=== PATIENT | male | born 1960 | race Caucasian/White ===

== ENCOUNTER 2018-09-25 12:45 | Observation (INO) | payer OTHER, SELFPAY ==
[2018-09-25 12:46] VITALS: BP 153/98; PULSE 60; RESP 13; TEMP 36.9; O2SAT 99
--- NOTE | 2018-09-25 13:05 | ED.NEUROSD ---
HPI - Neuro Symptoms/Deficit General Chief Complaint: Neuro Symptoms/Deficit Stated Complaint: sudden memory issues Time Seen by Provider: 09/25/18 12:53 Source: patient and family Mode of arrival: ambulatory Limitations: no limitations History of Present Illness HPI Narrative: Patient is a 58-year-old male brought in by his by private vehicle. A code stroke was called in triage secondary to his complaint of word-finding issues. To shortly prior to arrival here in the emergency department the patient was sitting at lunch with his when they reported a sudden onset of the patient having confusion and problems finding words. Patient's states that he could remember people's names. He had trouble telling her what he did during work that day. She had him see the alphabet and he had difficulty doing that. The patient states that he understood that he was having problems thing words. He stated that he could see the words that he wanted to say and his head but could not say them. He states state that he has a slight headache however no other associated symptoms. Has never had any symptoms like this before. Upon my evaluation the patient is thinks that his symptoms have improved somewhat but not completely resolved. Related Data Home Medications Medication Instructions Recorded Confirmed amlodipine [Norvasc] 5 mg PO QPM 09/25/18 09/25/18 aspirin 81 mg PO QPM 09/25/18 09/25/18 benazepril 10 mg PO BID 09/25/18 09/25/18 cetirizine 10 mg PO QPM PRN 09/25/18 09/25/18 escitalopram oxalate 10 mg PO QPM 09/25/18 09/25/18 ranitidine HCl [Zantac] 150 mg PO BEDTIME 09/25/18 09/25/18 sildenafil (antihypertensive) 1 dose PO PRN PRN 09/25/18 09/25/18 simvastatin 20 mg PO QPM 09/25/18 09/25/18 Allergies Allergy/AdvReac Type Severity Reaction Status Date / Time No Known Drug Allergies Allergy Verified 09/25/18 13:16 Review of Systems Constitutional Denies fatigue, Denies fever(s) and Reports headache(s) Eyes Denies change in vision and Denies diplopia ENT Ears, Nose, Mouth, and Throat: Reports headache(s), Denies neck pain, Denies disequilibrium and Denies sore throat Cardiovascular Denies chest pain, Denies rapid heart rate, Denies edema, Denies palpitations and Denies dyspnea Respiratory Denies cough and Denies dyspnea Gastrointestinal Gastrointestinal: Denies abdominal pain, Denies change in stool character, Denies nausea and Denies vomiting Genitourinary Denies dysuria Musculoskeletal Denies myalgias, Denies arthralgias, Denies neck pain, Denies numbness and Denies tingling Integumentary/Breasts Denies new lesions and Denies rash Neurologic Reports abnormal speech, Denies behavioral changes, Reports headache(s), Denies numbness, Denies tingling and Denies disequilibrium Psychiatric Denies behavioral changes Endocrine Denies fatigue and Denies palpitations Hematologic/Lymphatic Denies easy bleeding and Denies easy bruising Allergic/Immunologic Denies urticaria PFSH Medical History Hypertension (Acute) Social History household members: spouse and children Smoking Status: Never smoker Social History household members: spouse and children Smoking Status: Never smoker Exam Initial Vital Signs Initial Vital Signs: Vital Signs Temperature 98.4 F 09/25/18 12:46 Pulse Rate 60 09/25/18 12:46 Respiratory Rate 13 09/25/18 12:46 Blood Pressure 153/98 H 09/25/18 12:46 Pulse Oximetry 99 09/25/18 12:46 Const General: cooperative, comfortable, well developed, well groomed and No acute distress Orientation: alert, awake and oriented x3 HENOK Head: normal to inspection and normocephalic Eyes Pupils: PERRL EOM: EOM intact bilaterally Resp Effort & Inspection: normal respiratory effort Auscultation: clear to auscultation bilaterally Cardio Rate: regular rate Rhythm: regular rhythm Pulses: radial pulses present GI Inspection: non-distended Palpation: soft, No firm and No tender Skin Lesions: no lesions Rashes: no rashes Neuro General: alert, awake and oriented x3 Cranial Nerves: CN's II-XI intact bilaterally Cognition: normal cognition Speech: speech normal Gait: normal gait Motor: muscle tone normal throughout Sensory Exam: no sensory deficits noted Extrem General: capillary refill normal Psych Appearance: grossly normal and well kempt Scores GCS Ben coma scale eye opening: Spontaneous Cactus coma scale verbal response: Orientated Ben coma scale motor response: Obey commands Ben coma scale total score: 15 NIH Stroke Scale Level of Conciousness: Alert, keenly responsive Ask month/age: Answers both questions correctly. Open/close eyes, close hand: Performs both tasks correctly Best gaze horizontal: Normal Visual arevalo: No visual loss Facial palsy: Normal symetrical movement Left arm drift: No drift for full 10 sec Right arm drift: No drift for full 10 sec Left leg drift: No drift for full 10 sec Right leg drift: No drift for full 10 sec Limb ataxia: Absent Sensory on face/arms/legs: Normal, no sensory loss Best language: Mild to moderate, slurs some words Dysarthria: Normal Extinction or inattention: No abnormality Total NIH Stroke scale score: 1 Course Orders Ordered: ED Orders 09/25/18 13:00 Basic Metabolic Panel Stat Complete Blood Count AUTO DIFF Stat Partial Thromboplastin Time Stat Prothrombin Time INR Stat 09/25/18 13:10 EKG-12 Lead Stat 09/25/18 13:14 CT head/brain wo con Stat 09/25/18 13:40 Urine Drug Screen, Rapid Stat 09/25/18 14:06 Education, smoking cessation ONGOING 09/25/18 14:08 Consult to Discharge Planning Routine Consult to Occupational Therapy Evaluate & Treat 09/25/18 14:26 EC echo doppler complete Urgent MR stroke Urgent 09/25/18 16:48 Consult to Speech Therapy Evaluate & Treat 09/26/18 05:00 Hemoglobin A1C% w Est Avg Glu Routine Lipid Panel Routine Acetaminophen (Tylenol) 650 mg PO Q6HR PRN PRN Reason: As Needed for Fever/Mild Pain Last Admin: 09/25/18 14:22 Dose: 650 mg Al Hydrox/Mg Hydrox/Simethicone (Maalox Plus) 30 ml PO Q6HR PRN PRN Reason: Dyspepsia Aspirin (Aspirin Ec) 81 mg PO QPM ROGELIO Calcium Carbonate (Tums) 1,000 mg PO Q4HR PRN PRN Reason: Dyspepsia Escitalopram Oxalate (Lexapro) 10 mg PO QPM ROGELIO Heparin Sodium (Porcine) (Heparin) 5,000 unit SUBCUT BID ROGELIO Sodium Chloride (Normal Saline 0.9%) 1,000 mls @ 100 mls/hr IV CONT ROGELIO Magnesium Hydroxide (Milk Of Magnesia) 30 ml PO DAILY PRN PRN Reason: Constipation Non-Formulary Medication (Cetirizine) 10 mg PO QPM PRN PRN Reason: Allergy Symptoms Ondansetron HCl (Zofran) 4 mg IV Q8HR PRN PRN Reason: Nausea And Vomiting Ranitidine HCl (Zantac) 150 mg PO BEDTIME ROGELIO Simvastatin (Zocor) 20 mg PO QPM ROGELIO Discontinued Medications Aspirin (Aspirin Chew) 324 mg PO NOW ONE Stop: 09/25/18 14:07 Last Admin: 09/25/18 14:22 Dose: 324 mg Sodium Chloride (Normal Saline 0.9%) 1,000 mls @ 150 mls/hr IV CONT ROGELIO Last Infusion: 09/25/18 14:39 Dose: 150 mls/hr Admin: 09/25/18 13:23 Dose: 150 mls/hr Vital Signs - 8 hr 09/25/18 12:46 09/25/18 13:30 09/25/18 15:30 Temperature 98.4 F 98.2 F Pulse Rate 60 54 L 61 Respiratory Rate 13 20 Blood Pressure 153/98 H 148/83 H Blood Pressure [Right Arm] 154/91 H Pulse Oximetry 99 98 97 MDM - Neuro Symptoms/Deficit Lab Data Attestation: I reviewed the patient's lab results. Result diagrams: 09/25/18 13:00 09/25/18 13:00 Lab Results 09/25/18 09/25/18 09/25/18 Range/Units 13:00 13:00 13:00 WBC 7.2 (4.5-11.0) X10^3/uL RBC 4.60 (4.5-5.9) X10^6/uL Hgb 13.8 (13.5-17.5) g/dL Hct 41.5 (41-53) % MCV 90.1 (80-100) fL MCH 30.1 (26-34) PG MCHC 33.3 (30-36) % RDW 13.7 (11.6-14.8) % Plt Count 209 (150-400) X10^3/uL Neut % (Auto) 70.1 (50-75) % Lymph % (Auto) 20.3 L (25-40) % [place] % (Auto) 7.9 (3-14) % Eos % (Auto) 1.2 L (2-4) % Baso % (Auto) 0.5 (0-2) % Neut # (Auto) 5100 (8913-9012) /uL Lymph # (Auto) 1500 (4022-3147) /uL [place] # (Auto) 600 (0-900) /uL Eos # (Auto) 100 (0-450) /uL Baso # (Auto) 0 (0-100) /uL PT 10.6 (10.1-12.7) SECONDS INR 0.9 (0.9-1.3) APTT 30 (26.4-36.2) SECONDS Sodium 142 (137-145) mmol/L Potassium 3.7 (3.4-5.1) mmol/L Chloride 106 (98-107) mmol/L Carbon Dioxide 27 (22-32) mmol/L BUN 13 (9-20) mg/dL Creatinine 0.90 (0.66-1.25) mg/dL Estimated GFR > 60.0 (>60) mL/min BUN/Creatinine Ratio 14.4 (6-22) Glucose 123 H (70-100) mg/dL Calcium 9.5 (8.4-10.2) mg/dL Urine Opiates Screen (Negative) Ur Oxycodone Screen (Negative) Urine Methadone Screen (Negative) Ur Barbiturates Screen (Negative) U Tricyclic Antidepress (Negative) Ur Phencyclidine Scrn (Negative) Ur Amphetamines Screen (Negative) U Methamphetamines Scrn (Negative) Ur MDMA Scrn (Ecstasy) (Negative) U Benzodiazepines Scrn (Negative) Urine Cocaine Screen (Negative) U Marijuana (THC) Screen (Negative) 09/25/18 Range/Units 13:40 WBC (4.5-11.0) X10^3/uL RBC (4.5-5.9) X10^6/uL Hgb (13.5-17.5) g/dL Hct (41-53) % MCV (80-100) fL MCH (26-34) PG MCHC (30-36) % RDW (11.6-14.8) % Plt Count (150-400) X10^3/uL Neut % (Auto) (50-75) % Lymph % (Auto) (25-40) % [place] % (Auto) (3-14) % Eos % (Auto) (2-4) % Baso % (Auto) (0-2) % Neut # (Auto) (0783-3281) /uL Lymph # (Auto) (1867-7650) /uL [place] # (Auto) (0-900) /uL Eos # (Auto) (0-450) /uL Baso # (Auto) (0-100) /uL PT (10.1-12.7) SECONDS INR (0.9-1.3) APTT (26.4-36.2) SECONDS Sodium (137-145) mmol/L Potassium (3.4-5.1) mmol/L Chloride (98-107) mmol/L Carbon Dioxide (22-32) mmol/L BUN (9-20) mg/dL Creatinine (0.66-1.25) mg/dL Estimated GFR (>60) mL/min BUN/Creatinine Ratio (6-22) Glucose (70-100) mg/dL Calcium (8.4-10.2) mg/dL Urine Opiates Screen Negative (Negative) Ur Oxycodone Screen Negative (Negative) Urine Methadone Screen Negative (Negative) Ur Barbiturates Screen Negative (Negative) U Tricyclic Antidepress Negative (Negative) Ur Phencyclidine Scrn Negative (Negative) Ur Amphetamines Screen Negative (Negative) U Methamphetamines Scrn Negative (Negative) Ur MDMA Scrn (Ecstasy) Negative (Negative) U Benzodiazepines Scrn Negative (Negative) Urine Cocaine Screen Negative (Negative) U Marijuana (THC) Screen Negative (Negative) Point of Care Testing Glucose POC 133 Urine Dip Bedside Urine Glucose Negative Bedside Urine Bilirubin - Negative Bedside Urine Ketone - Negative Urine Specific [place] 1.015 Bedside Urine Occult Blood - Negative Bedside Urine pH 6.5 Bedside Urine Protein - Negative Bedside Urine Urobilinogen - Negative Bedside Urine Nitrite - Negative Bedside Urine Leukocytes - Negative Esterase Imaging Data CT scan - head: Radiologist's impression: [address] [address] [address] Scan Report Signed Patient: Itz Mcpherson [facility]#: [id number] : 1960Acct:[id number] Age/Sex: 58 / MDate of Service: 09/25/18 Loc: ED Accession Number: [id number] Procedure: CT head/brain wo con Ordering Provider: Dayanna Collins PROCEDURE: CT HEAD/BRAIN WO CON INDICATIONS: Neuro deficit, code stroke TECHNIQUE: Noncontrast 4.5 mm thick angled axial sections acquired from the foramen magnum to the vertex, with coronal and sagittal reformats. For radiation dose reduction, the following was used: automated exposure control, adjustment of mA and/or kV according to patient size. COMPARISON: None. FINDINGS: Image quality: Excellent. CSF spaces: Basal cisterns are patent. No extra-axial fluid collections. Ventricles are normal in size and shape. Brain: No midline shift. No intracranial masses or hemorrhage. Aguero-white matter interface is normal. Skull and face: Calvarium and visualized facial bones are intact, without suspicious lesions. Sinuses: There is a small air-fluid level in the left maxillary sinus. The mastoids are clear. IMPRESSION: 1. No acute intracranial abnormalities. 2. A small air-fluid level in the left maxillary sinus. The result was discussed with Dr. Elias in ER on 09/25/2018 at 1313 hours. Dictated by: Bryant Lopez M.D. on 09/25/2018 at 13:12 Approved by: Bryant Lopez M.D. on 09/25/2018 at 13:16 ECG Data Attestation: I personally reviewed and interpreted this ECG as follows: Prior ECG tracings: not available for review Interpretation: Sinus bradycardia Ventricular rate of 57 Normal axis Normal QRS Normal QTC No ST T wave changes MDM Narrative Medical decision making narrative: For the patient in the his symptoms have been improving since the onset. His head CT was negative. NIH of 2. My initial evaluation did have him have some problems saying his ABCs however re-evaluation after the head CT this had resolved. I do not feel that tPA is warranted given his improvement of symptoms and his low NIH score. During his time here in the ER the patient complete the resolved of all symptoms. He was given an aspirin. Discussed the case with with Internal Medicine will admit for TIA workup. Discussed the admission with the patient and his . They both expressed understanding and agreement. Discharge Plan Departure Patient Disposition: Admitted as Observation Clinical Impression: Transient cerebral ischemia Qualifiers: Transient cerebral ischemia type: unspecified Qualified Code(s): G45.9 - Transient cerebral ischemic attack, unspecified Discharge Date/Time: 09/25/18 15:19 Admit Date/Time: 09/25/18 14:16 Admit Provider: Milana Anne
[2018-09-25 13:07] LABS: Add Manual Diff / Slide Review NO; Basophils Absolute Auto 0 /uL (0-100); Basophils Percent Auto 0.5 % (0-2); Eosinophils Absolute Auto 100 /uL (0-450); Eosinophils Percent Auto 1.2 % (2-4); Hematocrit 41.5 % (41-53); Hemoglobin 13.8 g/dL (13.5-17.5); Lymphocytes Absolute Auto 1500 /uL (1100-4500); Lymphocytes Percent Auto 20.3 % (25-40); Mean Corpuscular HGB Conc 33.3 % (30-36); Mean Corpuscular Hemoglobin 30.1 PG (26-34); Mean Corpuscular Volume 90.1 fL (80-100); Monocytes Absolute Auto 600 /uL (0-900); Monocytes Percent Auto 7.9 % (3-14); Neutrophils Absolute Auto 5100 /uL (1500-7000); Neutrophils Percent Auto 70.1 % (50-75); Platelet Count 209 X10^3/uL (150-400); Red Cell Distribution Width 13.7 % (11.6-14.8); White Blood Cell Count 7.2 X10^3/uL (4.5-11.0)
--- NOTE | 2018-09-25 13:13 | PC.NURSE ---
code stroke on admission [id number]
--- NOTE | 2018-09-25 13:14 | DI.CT.S_ITS ---
PROCEDURE: CT HEAD/BRAIN WO CON INDICATIONS: Neuro deficit, code stroke TECHNIQUE: Noncontrast 4.5 mm thick angled axial sections acquired from the foramen magnum to the vertex, with coronal and sagittal reformats. For radiation dose reduction, the following was used: automated exposure control, adjustment of mA and/or kV according to patient size. COMPARISON: None. FINDINGS: Image quality: Excellent. CSF spaces: Basal cisterns are patent. No extra-axial fluid collections. Ventricles are normal in size and shape. Brain: No midline shift. No intracranial masses or hemorrhage. Aguero-white matter interface is normal. Skull and face: Calvarium and visualized facial bones are intact, without suspicious lesions. Sinuses: There is a small air-fluid level in the left maxillary sinus. The mastoids are clear. IMPRESSION: 1. No acute intracranial abnormalities. 2. A small air-fluid level in the left maxillary sinus. The result was discussed with Dr. Elias in ER on 09/25/2018 at 1313 hours. Dictated by: Bryant Lopez M.D. on 09/25/2018 at 13:12 Approved by: Bryant Lopez M.D. on 09/25/2018 at 13:16
[2018-09-25 13:15] LABS: INR 0.9 (0.9-1.3); Prothrombin Time 10.6 SECONDS (10.1-12.7)
[2018-09-25 13:18] LABS: PTT Partial Thromboplastin Tim 30 SECONDS (26.4-36.2)
[2018-09-25 13:19] LABS: BUN Creatinine Ratio 14.4 (6-22); Blood Urea Nitrogen 13 mg/dL (9-20); Calcium 9.5 mg/dL (8.4-10.2); Carbon Dioxide 27 mmol/L (22-32); Chloride 106 mmol/L (98-107); Estimated Glomerular Filt Rate > 60.0 mL/min (>60); Glucose 123 mg/dL (70-100); HEMOLYSIS < 15 (0-50); Potassium 3.7 mmol/L (3.4-5.1); Sodium 142 mmol/L (137-145)
[2018-09-25] MEDS: SODIUM CHLORIDE 0.9% 1,000 ML 150 ML IV (13:23)
--- NOTE | 2018-09-25 13:26 | PC.NURSE ---
pt states at 1100, he noticed his vision blurry, went to lunch at 1130 with spouse and she noticed him searching for words. finished lunch, dropped off work truck near by and came in.
[2018-09-25 13:30] VITALS: BP 154/91; PULSE 54; O2SAT 98
[2018-09-25 14:07] LABS: Urine Amphetamines Negative (Negative); Urine Barbiturates Negative (Negative); Urine Benzodiazepines Negative (Negative); Urine Cocaine Negative (Negative); Urine MDMA Negative (Negative); Urine Methadone Negative (Negative); Urine Methamphetamines Negative (Negative); Urine Morphine/Opi cutoff 2000 Negative (Negative); Urine Oxycodone Negative (Negative); Urine Phencyclidine Negative (Negative); Urine Tetrahydrocannabinol Negative (Negative); Urine Tricyclic Antidepressant Negative (Negative)
[2018-09-25] MEDS: ACETAMINOPHEN 325 MG TABLET 650 MG PO (14:22)
[2018-09-25] MEDS: ASPIRIN 81 MG TAB 324 MG PO (14:22)
--- NOTE | 2018-09-25 14:26 | DI.ECHO.S_ITS ---
[facility]---------+ [facility] +---------+ : : [address] : : : : [id number] : : : : Phone: [phone]+ Echocardiogram Report + + :Name: SERINA JACKSON Study Date: 09/25/2018 Height: 69 in : :[facility] Exam Location: [facility] Weight: 200 lb : : Gender: Male BSA: 2.1 m2 : :: 1960 Age: 58 yrs BP: 148/83 mmHg: :Reason For Study: TIA : : Performed By: Giovani Evans : :Referring: LAURA ORTIZ : + + Interpretation Summary The left ventricle is normal in size, wall thickness, and systolic function without any focal wall motion abnormalities with the ejection fraction visually estimated to be 60-65%. Diastolic parameters suggest probable normal left ventricular diastolic function and normal filling pressures. The right ventricle is borderline dilated with systolic function that is at the lower limits of normal. The right ventricular systolic pressure is estimated to be at least 24 mmHg based on an estimated right atrial pressure of 3 mm Hg. Both atria are normal in size. The interatrial septum appears intact with no visual or Doppler evidence for an atrial septal defect but injection of contrast with valsalva shows a small number of bubbles within 5 beats within the left atrium suggestive of a small patent foramen ovale. There is no significant valvular heart disease. The ascending aorta is mildly enlarged. Procedure: A two-dimensional transthoracic echocardiogram with color flow and Doppler was performed. The study quality was technically good. There is no prior echocardiogram noted for this patient. A saline contrast injection was performed to assess for cardiac shunting. The patient was in normal sinus rhythm during the exam. Left Ventricle: The left ventricle is normal in size, wall thickness, and systolic function without any focal wall motion abnormalities. The ejection fraction is estimated to be 60-65%. Diastolic parameters suggest probable normal left ventricular diastolic function and normal filling pressures. Right Ventricle: The right ventricle is borderline dilated. Right ventricular systolic function is at the lower limits of normal. Atria: Both atria are normal in size. The interatrial septum is intact with no evidence for an atrial septal defect. There is no Doppler evidence for an atrial septal defect. Injection of contrast with valsalva documented an interatrial shunt. Mitral Valve: The mitral valve is normal in structure and function. There is trace mitral regurgitation. Aortic Valve: The aortic valve is trileaflet. The aortic valve opens well. There is trace aortic regurgitation. Tricuspid Valve: The tricuspid valve is normal in structure and function. There is trace tricuspid regurgitation. The right ventricular systolic pressure is estimated to be at least 24 mmHg based on an estimated right atrial pressure of 3 mm Hg. Pulmonic Valve: The pulmonic valve is normal in structure and function. There is no pulmonic valvular regurgitation. There is no significant valvular heart disease. Great Vessels: The aortic root is normal size. The ascending aorta is mildly enlarged. The pulmonary artery is normal size. The IVC is of normal diameter and collapses greater than 50% with a sniff. This suggests a low right atrial pressure of 3 mm Hg. Pericardium/ Pleura There is no pericardial effusion. There is no pleural effusion. MMode/2D Measurements & Calculations LVIDd: 4.8 cm LVOT diam: 2.1 cm LVIDs: 3.4 cm Ao root diam: 3.2 cm FS: 29.8 % Aortic Jxn: 2.9 cm EPSS: 0.40 cm asc Aorta Diam: 3.8 cm IVSd: 1.0 cm LVPWd: 0.96 cm LV flores. diameter/BSA (cm/m^2): 2.3 LV sys. diameter/BSA (cm/m^2): 1.6 LA dimension: 3.2 cm RA long axis: 5.0 cm LA A2 area: 19.4 cm2 RA area: 16.0 cm2 LA A4 area: 17.6 cm2 RA vol: 43.5 ml LA length (vol): 5.0 cm RA : 21.0 ml/m2 LA vol: 57.9 ml IVC diam: 1.9 cm LA vol index: 28.0 ml/m2 RVD1 (basal): 4.2 cm RVD2 (mid): 4.3 cm Doppler Measurements & Calculations Ao V2 max: 152.0 cm/sec LVOT Max Rito: 96.1 cm/sec Ao V2 mean: 105.7 cm/sec LV V1 max P.7 mmHg Ao max P.2 mmHg LV V1 VTI: 23.3 cm Ao mean P.9 mmHg EULALIA(I,D): 2.6 cm2 Ao V2 VTI: 32.2 cm EULALIA(V,D): 2.2 cm2 sev ratio: 0.72 EULALIA indexed to BSA (cm^2/m^2): 1.2 MV E max rito: 103.6 cm/sec TR max rito: 227.5 cm/sec MV A max rito: 84.6 cm/sec TR max P.7 mmHg MV E/A: 1.2 PA V2 max: 84.5 cm/sec Med Peak E' Rito: 6.9 cm/sec PA V2 mean: 62.9 cm/sec E/E' med: 14.9 PA mean P.7 mmHg Lat Peak E' Rito: 11.4 cm/sec PA pr(Accel): 31.6 mmHg E/E' lat: 9.1 PA Accel Time: 0.11 sec E/e' average: 12.0 MV dec time: 0.17 sec SV(LVOT): 82.7 ml Reading Physician:PM
--- NOTE | 2018-09-25 14:26 | DI.MRI.S_ITS ---
PROCEDURE: MR STROKE Pre- and post-contrast brain MRI, non-contrast brain MR angiogram, pre- and postcontrast neck MR angiogram INDICATIONS: TIA with expressive aphasia TECHNIQUE: Brain: Noncontrast axial T1 spin echo, axial T2 fast spin echo, sagittal and axial FLAIR, coronal T2 fast spin echo, axial gradient echo, axial diffusion and ADC through the brain. After the administration of contrast, axial 3D VIBE of the cranial vasculature and brain. Brain MRA: Non-contrast 3-D time of flight MR angiogram, with multiple xtqxjzp-fubcsader-xtdaiopjnq (MIP) reformats performed. Neck MRA: Axial and sagittal TruFISP through the neck. Coronal dynamic MR angiogram during administration of contrast in the arterial and venous phases, with 3-dimenstional psquctg-royrjkkbs-sdxdjhlbly (MIP) reformats constructed from subtraction images. COMPARISON: [facility], CT, CT HEAD/BRAIN WO CON, 09/25/2018, 13:01. FINDINGS: Image quality: Excellent. BRAIN: CSF spaces: Ventricles are normal in size and shape. Basal cisterns are patent. No extra-axial fluid collections. Brain: No intracranial bleeds or mass effects. Aguero-white matter interface is normal. Diffusion weighted images show no acute ischemic insults. Brainstem appears normal. Normal intravascular flow voids are present. No abnormal intracranial enhancement. Skull and face: Calvarial marrow signal is normal. Orbits appear normal. Sinuses: Mastoids are clear. There is maxillary sinus mucosal thickening bilaterally, left greater than right. BRAIN MR ANGIOGRAM: Anterior circulation: Intracranial internal carotid arteries are normal in size and enhancement. The flow within the paired anterior cerebral arteries is normal and symmetric. The flow within the middle cerebral arteries is normal and symmetric. The anterior communicating artery is seen. No stenoses, occlusions, or aneurysms. Posterior circulation: The visualized portions of the vertebral arteries demonstrate normal caliber, and join to form a normal appearing basilar artery. The flow within the posterior cerebral arteries is normal and symmetric. No stenoses, occlusions, or aneurysms. NECK MR ANGIOGRAM: Carotids: Great vessels demonstrate a conventional anatomy as they arise from the aortic arch. The origins of the common carotid arteries appear patent. The calibers and courses of both common carotid arteries are normal. The bifurcation regions appear normal bilaterally. The internal carotid arteries demonstrate normal course and caliber. Posterior circulation: The origins of the vertebral arteries appear patent. More superior portions of both vertebral arteries demonstrate normal course and caliber, and join to form a normal appearing basilar artery. Miscellaneous: Subclavian arteries appear patent. Pre-contrast images through the neck show no soft tissue abnormalities. IMPRESSION: BRAIN MRI: 1. No acute intracranial abnormalities. 2. Bilateral maxillary sinusitis, left greater than right. BRAIN MR ANGIOGRAM: 1. No high-grade stenosis or occlusion in anterior circulations. 2. No high-grade stenosis or occlusion in posterior circulations. NECK MR ANGIOGRAM: 1. No high-grade stenosis or occlusion in cervical carotid arteries. 2. No high-grade stenosis or occlusion in cervical vertebral arteries. Dictated by: Bryant Lopez M.D. on 09/25/2018 at 16:08 Approved by: Bryant Lopez M.D. on 09/25/2018 at 18:00
--- NOTE | 2018-09-25 15:17 | OT.IP.TRT ---
Occupational Therapy Treatment Note M3 OT- IP Subjective and Pain Start: 09/25/18 15:16 Freq: Status: Active Protocol: Document 09/25/18 15:17 [facility] (Rec: 09/25/18 15:17 [facility] [id number]) OT- Subjective Occupational Therapy Visit Type Type Patient Unavailable Notes Pt not in the room and per aid getting a procedure, therefore to check on pt tomorrow for OT eval.
[2018-09-25 15:30] VITALS: BP 148/83; PULSE 61; RESP 20; TEMP 36.8; O2SAT 97
--- NOTE | 2018-09-25 16:40 | OT.IP.EVAL ---
Past Medical History (Last Reviewed 09/25/18 @ 16:14 by Delano Elias DO) Hypertension (Acute) Occupational Therapy Inpatient Evaluation/Re-Eval M1 PT/OT-IP Prior Functional Status Start: 09/25/18 15:16 Freq: NEEDED Status: Active Protocol: Document 09/25/18 16:14 [facility] (Rec: 09/25/18 16:40 [facility] [id number]) Medical Review Prior Functional Status Medical History Reviewed Yes Diet/Fluid Consistency Regular Thin Liquids Communication Independent Mobility and Gait Independent with no devices. Activities of Daily Living and IADL's Completely independent with all ADL, IADL, working as HVAC repairman, and drives. Social History Household Members spouse children, pets Living Arrangements House Number of Floors (Floors) One Floor Number of Stairs To Enter/Railing? One step to enter. Home Environment Standard Height Toilet Tub/Shower Employment Status Project Admin Employed M2 OT-IP Current Condition Start: 09/25/18 15:16 Freq: Status: Active Protocol: Document 09/25/18 16:14 [facility] (Rec: 09/25/18 16:40 [facility] [id number]) Occupational Therapy Current Condition Current Condition Evaluation Date 09/25/18 Treatment Diagnosis Sudden memory loss Diagnosis Onset Date 09/25/18 Weight Bearing Status Weight Bearing Status Weight Bear as Tolerated M3 OT- IP Subjective and Pain Start: 09/25/18 15:16 Freq: Status: Active Protocol: Document 09/25/18 16:14 [facility] (Rec: 09/25/18 16:40 [facility] [id number]) OT- Subjective Occupational Therapy Visit Type Type Initial Evaluation Visit Start Time 15:35 Visit Stop Time 16:10 Total Visit Minutes 35 Occupational Therapy Visit Comments Patient Comments Pt feel like he is back to normal except for headache. Pt 's and co-worker in the room. Pt states does not feel think his is quite back to normal for speed of processing. Patient/Caregiver Goals Pt wants to go home. OT Pain Assessment Pain When Pain Assessed At Rest Pain Present Pain Present Pain Reported Location Head Intensity 7 Scale Used Numeric (1 - 10) M4 OT- IP ADL's Start: 09/25/18 15:16 Freq: Status: Active Protocol: Document 09/25/18 16:14 [facility] (Rec: 09/25/18 16:40 [facility] [id number]) OT ADL-Toileting Comments OT Toileting Comments Pt states has been using the bathroom on his own. M5 OT- IP IADL's Start: 09/25/18 15:16 Freq: Status: Active Protocol: Document 09/25/18 16:14 [facility] (Rec: 09/25/18 16:40 [facility] [id number]) OT-Instrumental Activities of Daily Living Deficits IADL Deficits Identified No Deficits Home Safety Awareness Awareness of Need for Assistance at Home Good Awareness Ability to Problem Solve Emergency Able to Problem Solve Situations Medication Management Medication Management No Deficits Identified International Affairs Vice President International Affairs Vice President No Deficits Identified M6 OT- IP Functional Cognition Start: 09/25/18 15:16 Freq: Status: Active Protocol: Document 09/25/18 16:14 [facility] (Rec: 09/25/18 16:40 [facility] [id number]) Cognitive Factors Limiting Selfcare Function Cognitive Ability Level of Alertness Alert Patient Orientation Name Age Birthday Month Date Year Day of Week Place Situation Attention Span Ability Capable of Focused Attention Capable of Sustained Attention Ability to Follow Commands Able to Follow Multi-Step Commands Memory Description Short Term Impaired Safety Awareness No Deficits Noted Problem Solving Ability Needs Assist to Identify Solutions Executive Function Ability Unable to Filter Distractions Unable to Remember Details Cognitive Tests SLUMS Pt scored 25/30 which normal for pt's education is 25/30. Pt having difficulty with short term memory issues, not recalling numbers to 2 digit math equation, only able to recall 3/5 words , and not able to remember answer to one question of story problem. Pt need extra time to solve problems or initially get it wrong and able to immediately correct himself. Cognitive Comments Cognitive Assessment Comments Pt states in general has difficulty with math, and will usually write things out or use of calculator. Pt scored 74 seconds on the [place] [employer] Part B which implies mild deficits for visual attention, task switching, speed of processing, executive function , and mental flexibility. Asked pt's co-worker to ask pt work related questions and pt able to answer all correctly. OT- Vision and Hearing OT- Hearing Assessment OT- Hearing Assessment WFL OT- Vision Assessment Visual Acuity Glasses All The Time Visual Attentiveness WFL Occular Pursuits WFL Visual Hussein WFL M7 OT- IP Mobility and Balance Start: 09/25/18 15:16 Freq: Status: Active Protocol: Document 09/25/18 16:14 [facility] (Rec: 09/25/18 16:40 [facility] [id number]) OT- Bed Mobility Assessment Rolling Level of Assistance Independent Supine to Sit Supine to Sit Assist Independent Sit to Supine Sit to Supine Assist Independent Scooting Scooting to Edge of Bed Independent Scooting Up and Down in Bed Independent OT-Transfer Assessment Sit to and From Stand Sit to and from Stand Independent Transfers Transfer Ability Independent Technique Transfer Destination Chair Transfer Technique Stand Step Pivot Devices Transfer Assistive Devices None Comments Mobility Comments Pt independent in the room for mobility needs. OT- Gait Assessment Gait Gait Assistance Required: Independent Assistive Devices Assistive Device None Comments Gait Ability Comments Pt independent in the room. OT- Balance Assessment Sitting Balance and Reactions Static Sitting Balance Ability Normal Dynamic Sitting Balance Ability Normal Standing Balance and Reactions Static Standing Balance Ability Normal Dynamic Standing Balance Ability Normal Comments Other Balance Tests/Deviations/Treatment Pt able to get up and down : from the floor independently, turn 360 degrees in both directions within 3 seconds, able to stand on one foot 10 seconds, stand with eyes closed and feet togther, pt able to climb to the window ledge. Pt appears to have no mobility deficits. M8 OT- IP Objective Assessments Start: 09/25/18 15:16 Freq: Status: Active Protocol: Document 09/25/18 16:14 [facility] (Rec: 09/25/18 16:40 [facility] [id number]) OT Gross Range of Motion Upper Extremity Range of Motion Assessment Within Functional Limits OT Strength Upper Extremity Strength Assessment Within Functional Limits Comments Strength Comments BUE 5/5 OT- Coordination Assessment Upper Extremity Finger to Nose Test Within Functional Limits OT-Muscle Tone Assessment Muscle Tone WNL Yes OT Sensation Assessment Comments Summary Comments WFL light touch M9 OT- IP Assessment and Plan Start: 09/25/18 15:16 Freq: Status: Active Protocol: Document 09/25/18 16:14 [facility] (Rec: 09/25/18 16:40 [facility] [id number]) OT Summary Assessment and Plan Potential Rehabilitation Potential Excellent Analytic Complexity at Evaluation Low Summary OT Impairments Functional Cognition Progress Towards Goals Progressing Toward Goals Assessment Summary Pt low complexity and main issue is decreased short term memory and math calculations. Pt has supportive to assist. Pending how pt does tomorrow may benefit from memory techniques. Pt tends to do better when not distracted and focusing on task at hand. Awaiting results of MRI. Goals OT-Other Goals Pt to have good understanding for memory strategies. Frequency of Treatment Frequency Of Treatment Once a Day Treatment Plan OT Treatment Plan Functional Cognition Training Patient/Family Education Discharge Planning Other Treatment Recommendations and Next Memopry strategies Treatment Focus Discharge Recommendations OT Discharge Recommendations Home with Assistance
[2018-09-25] MEDS: SODIUM CHLORIDE 0.9% 1,000 ML 100 ML IV (17:45)
[2018-09-25] MEDS: ESCITALOPRAM 10 MG TABLET PO (18:27)
[2018-09-25] MEDS: SIMVASTATIN 20 MG TABLET PO (18:27)
[2018-09-25] MEDS: ASPIRIN EC 81 MG TABLET PO (18:27)
[2018-09-25 18:39] VITALS: O2SAT 98; BMI 29.2
--- NOTE | 2018-09-25 20:18 | P.HP_ITS ---
History of Present Illness Date Patient Seen: 09/25/18 Time Patient Seen: 19:25 Chief complaint: sudden memory issues Narrative: Mr. Itz Mcpherson is a 58-year-old right-handed non smoking male with a history significant for hypertension and environmental allergies who presents to the ER after sudden onset of confusion and difficulty word finding while having lunch with his . The patient states he knew the words he wanted to say but was not able to say them. He describes a bifrontal headache but attributes this to sinus problems. He has no history of migraine headaches. Denies complaints dizziness or visual changes alterations in sensation or difficulty walking. His who is at bedside states that the onset she asked him to recite his ABCs which he could not do prompting the patient to go to the ER. The patient has had no recent falls or trauma, denies recent illness and has had no fevers or chills. He denies complaints of chest pain and has had no palpitations. He denies shortness of breath cough or wheezing. He reports no abdominal pain but will take ranitidine as needed for heartburn but denies any present now. He has had no nausea vomiting, constipation or diarrhea. He reports no difficulty urinating. Upon arrival in the ER patient is found to be afebrile with a temperature of 98.4?, heart rate of 60, blood pressure 153/98, respirations of 13 saturating 99% on room air. The patient on initial evaluation had an NIH score of 1 related to confusion. The patient underwent CT of the head per code stroke protocol which was negative for bleed or intercranial abnormalities. On laboratory studies his CBC is within normal limits with a white blood cell count of 7.2 hemoglobin of 13.8 hematocrit of 41.5. His platelets are 209. His coags are within normal limits with a PT of 10.6, INR of 0.9 and PTT of 30. His tox screen is negative. His electrolytes are within normal limits with good renal function with a BUN of 13 and creatinine 0.9. He has a nonfasting glucose 123. While in the ER the patient's symptoms resolved. The patient is admitted to the hospital for TIA. Patient History Medical History (Updated 09/25/18 @ 20:14 by ROSALIND Walsh) Depression (Acute) Dyspepsia (Acute) Hypertension (Acute) Malignant melanoma (Acute) Surgical History (Updated 09/25/18 @ 20:14 by ROSALIND Walsh) History of melanoma excision (Acute) Family History (Updated 09/25/18 @ 20:15 by ROSALIND Walsh) Father Abdominal aortic aneurysm Mother Diabetes mellitus Brother Hypertension Social History household members: spouse, children and friend(s) Smoking Status: Never smoker alcohol intake: current Family & Social History Family History (Updated 09/25/18 @ 20:15 by ROSALIND Walsh) Father Abdominal aortic aneurysm Mother Diabetes mellitus Brother Hypertension Social History: household members spouse,children,friend(s) Prior Living Arrangements House Safety & Behavioral: Feels Safe in Current Yes Environment Been Physically Hurt or No Threatened By a Person Suicidal Ideation Description None Suicide Plan Description No Plan Tobacco & Substance use: Smoking Status Never smoker alcohol intake current alcohol intake frequency 0-2 drinks per day Substance Use Type does not use Comment: The patient lives in a single 50 level single family home with his to whom he has been for 10 years and together for 14 years. Smoking: Patient denies ever smoking. Alcohol: Patient endorses drinking 2 beers daily. Substance use: Patient denies recreational pharmaceuticals, herbal or cannabis use. Advanced directives: In direct discussion with the patient he wishes to be FULL CODE. He designates his Sophia to be his surrogate decision maker. Meds Home Medications Medication Instructions Recorded Confirmed Type amlodipine [Norvasc] 5 mg PO QPM 09/25/18 09/25/18 History aspirin 81 mg PO QPM 09/25/18 09/25/18 History benazepril 10 mg PO BID 09/25/18 09/25/18 History cetirizine 10 mg PO QPM PRN 09/25/18 09/25/18 History escitalopram oxalate 10 mg PO QPM 09/25/18 09/25/18 History ranitidine HCl [Zantac] 150 mg PO BEDTIME 09/25/18 09/25/18 History sildenafil (antihypertensive) 1 dose PO PRN PRN 09/25/18 09/25/18 History simvastatin 20 mg PO QPM 09/25/18 09/25/18 History Allergies Allergy/AdvReac Type Severity Reaction Status Date / Time No Known Drug Allergies Allergy Verified 09/25/18 13:16 Review of Systems Review of Systems All systems reviewed & are unremarkable except as noted in HPI and below Exam Vital Signs (past 8 hours): - 09/25/18 12:46 09/25/18 13:30 09/25/18 15:30 Temperature 98.4 F 98.2 F Pulse Rate 60 54 L 61 Respiratory Rate 13 20 Blood Pressure 153/98 H 148/83 H Blood Pressure [Right Arm] 154/91 H Pulse Oximetry 99 98 97 09/25/18 18:39 Temperature Pulse Rate Respiratory Rate Blood Pressure Blood Pressure [Right Arm] Pulse Oximetry 98 Oxygen Delivery Method Room Air Oxygen Flow Rate 0 Narrative Exam Narrative: GENERAL APPEARANCE: well developed, well nourished, BMI of 29.3, conversant and in no acute distress. HEAD: Symmetrical facies, atraumatic, no scalp lesions. EYES: Wears glasses, no ptosis, pupils equal, round, reactive to light and accommodation, sclera non-icteric, extraocular movement intact without nystagmus. EARS: normal external structures, no ear pain NOSE: sinuses non tender to percussion, no rhinorrhea ORAL CAVITY: mucosa moist without lesions or exudate, palate normal, tongue in midline. THROAT: normal, no erythema NECK/THYROID: neck supple, no jugular venous distention, no carotid bruit, no thyromegaly, trachea midline. LYMPH NODES: no cervical or supraclavicular lymphadenopathy. SKIN: warm and dry, no suspicious lesions, no rashes, good turgor. HEART: regular rate and rhythm, S1-S2 without murmur, no rubs or gallops, brisk capillary refill, no edema LUNGS: clear to auscultation bilaterally, no coarseness crackles or wheezing, no cough present CHEST: Symmetrical movement, no accessory muscle use, no pain to AP and lateral compression. ABDOMEN: Soft, no distention, no epigastric or abdominal tenderness on palpation, no guarding or peritoneal signs, no organomegaly, no flank or suprapubic tenderness, active bowel tones. BACK: Normal curvature, nontender to palpation, no CVA tenderness on percussion EXTREMITIES: moves all extremities, strength is 5/5 and symmetrical, no deformities or joint effusions, gait is stable. NEUROLOGIC: AAO x4, cognition intact, no verbal impairment, cranial nerves II- XII grossly intact , motor strength normal upper and lower extremities, sensory exam intact to light touch, bicep and patellar reflexes 1+ and symmetrical, ambulatory without ataxia, NIH score is 0. PSYCH: alert, cognitive function intact, good eye contact, appropriate with stable behavior Objective Labs Result Diagrams: 09/25/18 13:00 09/25/18 13:00 Labs: Laboratory Results - last 24 hr 09/25/18 09/25/18 09/25/18 13:00 13:00 13:00 WBC 7.2 RBC 4.60 Hgb 13.8 Hct 41.5 MCV 90.1 MCH 30.1 MCHC 33.3 RDW 13.7 Plt Count 209 Neut % (Auto) 70.1 Lymph % (Auto) 20.3 L Kings % (Auto) 7.9 Eos % (Auto) 1.2 L Baso % (Auto) 0.5 Neut # (Auto) 5100 Lymph # (Auto) 1500 Kings # (Auto) 600 Eos # (Auto) 100 Baso # (Auto) 0 PT 10.6 INR 0.9 APTT 30 Sodium 142 Potassium 3.7 Chloride 106 Carbon Dioxide 27 BUN 13 Creatinine 0.90 Estimated GFR > 60.0 BUN/Creatinine Ratio 14.4 Glucose 123 H Calcium 9.5 Urine Opiates Screen Ur Oxycodone Screen Urine Methadone Screen Ur Barbiturates Screen U Tricyclic Antidepress Ur Phencyclidine Scrn Ur Amphetamines Screen U Methamphetamines Scrn Ur MDMA Scrn (Ecstasy) U Benzodiazepines Scrn Urine Cocaine Screen U Marijuana (THC) Screen 09/25/18 13:40 WBC RBC Hgb Hct MCV MCH MCHC RDW Plt Count Neut % (Auto) Lymph % (Auto) Kings % (Auto) Eos % (Auto) Baso % (Auto) Neut # (Auto) Lymph # (Auto) Kings # (Auto) Eos # (Auto) Baso # (Auto) PT INR APTT Sodium Potassium Chloride Carbon Dioxide BUN Creatinine Estimated GFR BUN/Creatinine Ratio Glucose Calcium Urine Opiates Screen Negative Ur Oxycodone Screen Negative Urine Methadone Screen Negative Ur Barbiturates Screen Negative U Tricyclic Antidepress Negative Ur Phencyclidine Scrn Negative Ur Amphetamines Screen Negative U Methamphetamines Scrn Negative Ur MDMA Scrn (Ecstasy) Negative U Benzodiazepines Scrn Negative Urine Cocaine Screen Negative U Marijuana (THC) Screen Negative Assessment & Plan Assessment & Plan narrative: This is a 58-year-old male patient who is admitted the hospital following a TIA resolving while in the ER without prior neurological history. 1. Acute transitory ischemic attack, active -patient with acute onset confusion and difficulty word finding presenting to the ER with symptoms persisting but resolved within 1 hour. -CT of the brain and MRI showed no acute pathology and angiography shows normal cerebral, carotid and vertebral circulation to be normal. -echocardiogram has been completed finding EF of 60-65% with no wall motion abnormalities, borderline right ventricular dilation, trace mitral and tricuspid regurgitation. Mild dilation of the ascending aorta. -patient previously has had ultrasound of the carotid with findings prompting and to be started on simvastatin and aspirin. -symptoms have resolved will assess neuro status every 2 hours. -will continue aspirin 81 mg daily -will continue simvastatin 20 mg daily and obtain lipid panel and discussed i ncreasing dose to atorvastatin 40 mg daily. -glucose was 123 on admission, will obtain hemoglobin A1c. -physical and occupational therapy to consult. 2. Chronic Hypertension, active. -patient is hypertensive upon admission to the ER with a pressure of 153/98. Patient continues to have elevated blood pressure following admission at 148/83. -will continue patient's home regimen of amlodipine 5 mg q.p.m. and benazepril 10 mg p.o. twice daily. -will monitor blood pressures overnight. 3. Chronic environmental allergies, active. -MRI finding of maxillary sinus mucosal thickening bilaterally, left greater than right. Complaints of frontal headache without maxillary sinus tenderness on percussion. -patient may continue certrizine 10 mg as needed for nasal congestion. 4. Chronic depression, stable. -patient is appropriate and animated, conversant and cooperative. -continue current home regimen of escitalopram 10 mg nightly. The patient is admitted to the hospital related to severity of his symptoms and risk for adverse events and complications. Patient will be observation with expected length of stay less than 2 midnights. Scores GCS [place] coma scale eye opening: Spontaneous [place] coma scale verbal response: Orientated [place] coma scale motor response: Obey commands [place] coma scale total score: 15 ABCD2 Age >= 60 years: no Initial BP. Either SBP >= 140 or DBP >= 90.: yes Clinical features of the TIA: speech disturbance without weakness Duration of symptoms: 10-59 minutes History of diabetes: no ABCD2 Score: 3 NIHSS Level of Conciousness: Alert, keenly responsive Ask month/age: Answers both questions correctly. Open/close eyes, close hand: Performs both tasks correctly Best gaze horizontal: Normal Visual arevalo: No visual loss Facial palsy: Normal symetrical movement Left arm drift: No drift for full 10 sec Right arm drift: No drift for full 10 sec Left leg drift: No drift for full 5 sec Right leg drift: No drift for full 5 sec Limb ataxia: Absent Sensory on face/arms/legs: Normal, no sensory loss Best language: No aphasia, normal Dysarthria: Normal Extinction or inattention: No abnormality Total NIH Stroke scale score: 0 Quality VTE Deep Vein Thrombosis/Pulmonary Embolism Present on Admission: No
[2018-09-25 20:44] VITALS: BP 131/77; PULSE 57; RESP 18; TEMP 36.8
[2018-09-25] MEDS: HEPARIN 5,000 UNIT/ML VIAL 5000 UNIT SUBCUT (22:49)
[2018-09-25 23:49] VITALS: BP 110/59; PULSE 57; RESP 16; TEMP 36.9; O2SAT 97
--- NOTE | 2018-09-26 00:23 | PC.NURSE ---
shift summary- Pt arrived back to room 226 from imaging @ 1645. ECHO arrived at 1700, which took approx 45min, then pt able to eat dinner with , Sophia who is rooming in. NIH score-0, denies pain, nausea, SOB, headache, dizziness, or lightheadedness. 98%RA, LS clear. Indep to BRP and ambulating. Tele in place with NSR x2. Left hand NS @ 100. Calf SCD's on, Call light in reach and bed alarm on for safety.
[2018-09-26 00:42] VITALS: O2SAT 97
[2018-09-26] MEDS: SODIUM CHLORIDE 0.9% 1,000 ML 100 ML IV (03:16)
--- NOTE | 2018-09-26 04:52 | PC.NURSE ---
Pt VSS, Lung sounds clear bilaterally. Pt is on tele: Sinus Julio. Pt's is at bedside this night. Pt's neuro status remains intact and unchanged Q2 hrs.
[2018-09-26 06:00] VITALS: BP 142/98; PULSE 61; RESP 16; TEMP 37; O2SAT 98
[2018-09-26 06:19] LABS: Cholesterol 143 mg/dL (140-199); HDL Cholesterol 40 mg/dL (40-60); LDL Cholesterol Calculated 83 mg/dL (<100); Triglycerides 98 mg/dL (35-150)
[2018-09-26 06:21] LABS: Hemoglobin A1C% w Est Avg Glu 5.6 % (4.0-6.0)
[2018-09-26 08:00] VITALS: BP 136/90; PULSE 55; RESP 18; TEMP 36.9; O2SAT 95
--- NOTE | 2018-09-26 08:05 | ST.IPIE ---
Past Medical History (Last Updated 09/25/18 @ 20:14 by ROSALIND Walsh) Depression (Acute Medical) Dyspepsia (Acute Medical) Hypertension (Acute Medical) Malignant melanoma (Acute Medical) ST IP Initial Evaulation Report CONTRACTS MANAGER Language Evaluation Start: 09/26/18 07:56 Freq: Status: Active Protocol: Document 09/26/18 07:56 [facility] (Rec: 09/26/18 08:05 [facility] [id number]) Language Evaluation Session Time Visit Start Time 07:40 Visit Stop Time 07:55 Total Visit Minutes 15 Referral Reason for Referral TIA, difficulty with word finding yesterday Past Medical History Patient History Patient was brought in for word finding deficits which have since resolved. CT and MRI were negative. He was admitted for overnight monitoring of TIA. Hearing Hearing Level Normal Vision Vision Status Impaired Comments wears glasses Occupational Status Occupation Status HVAC repairman - Informal Assessment Receptive Language Normal Yes Expressive Language Normal Yes Articulation Normal Yes Cognition Normal Yes - Receptive Language Yes/No Questions Skill Level WNL Following Directions - Verbal Skill Level WNL Auditory Comprehension Skill Level WNL Reading Comprehension Skill Level WNL - Expressive Language Automatic Speech Skill Level WNL Sentence Closure Skill Level WNL Object Naming Skill Level WNL Oral Expression Skill Level WNL - Findings Language Findings Informal and non-standardized measures of speech and language were administered. No impairments observed in speech or language. Speech was 100% intelligible and precise. Rate was normal. Receptive and expressive language skills were WNL. Patient scored 25/30 on SLUMs yesterday which is considered normal for his educational level. Patient reports word finding symptoms have resolved and he feels back to normal. Recommendations Recommendations No speech therapy recommended at this time. Discussed possibility of outpatient ST if impairments arise as patient resumes work/ daily life activities; however, I do not think this will be needed as patient appears back to baseline for speech/language/ cognitive skills.
[2018-09-26] MEDS: HEPARIN 5,000 UNIT/ML VIAL 5000 UNIT SUBCUT (08:58)
--- NOTE | 2018-09-26 09:40 | OT.IP.TRT ---
Occupational Therapy Treatment Note M2 OT-IP Current Condition Start: 09/25/18 15:16 Freq: Status: Active Protocol: Document 09/25/18 16:14 [facility] (Rec: 09/25/18 16:40 [facility] [id number]) Occupational Therapy Current Condition Current Condition Evaluation Date 09/25/18 Treatment Diagnosis Sudden memory loss Diagnosis Onset Date 09/25/18 Weight Bearing Status Weight Bearing Status Weight Bear as Tolerated M3 OT- IP Subjective and Pain Start: 09/25/18 15:16 Freq: Status: Active Protocol: Document 09/26/18 09:39 [facility] (Rec: 09/26/18 09:40 [facility] [id number]) OT- Subjective Occupational Therapy Visit Type Type Treatment Note Visit Start Time 09:35 Visit Stop Time 09:37 Total Visit Minutes 2 Notes No charge. Pt's short term memory and problem solving back to baseline and no deficits noted today. Pt to go home with .
--- NOTE | 2018-09-26 10:27 | P.DS_ITS ---
History of Present Illness Date Patient Seen: 09/25/18 Chief complaint: sudden memory issues Narrative: Written by Ever BOEYR: Mr. Itz Mcpherson is a 58-year-old right-handed non smoking male with a history significant for hypertension and environmental allergies who presents to the ER after sudden onset of confusion and difficulty word finding while having lunch w ith his . The patient states he knew the words he wanted to say but was not able to say them. He describes a bifrontal headache but attributes this to sinus problems. He has no history of migraine headaches. Denies complaints dizziness or visual changes alterations in sensation or difficulty walking. His who is at bedside states that the onset she asked him to recite his ABCs which he could not do prompting the patient to go to the ER. The patient has had no recent falls or trauma, denies recent illness and has had no fevers or chills. He denies complaints of chest pain and has had no palpitations. He denies shortness of breath cough or wheezing. He reports no abdominal pain but will take ranitidine as needed for heartburn but denies any present now. He has had no nausea vomiting, constipation or diarrhea. He reports no difficulty urinating. Upon arrival in the ER patient is found to be afebrile with a temperature of 98.4?, heart rate of 60, blood pressure 153/98, respirations of 13 saturating 99% on room air. The patient on initial evaluation had an NIH score of 1 related to confusion. The patient underwent CT of the head per code stroke protocol which was negative for bleed or intercranial abnormalities. On laboratory studies his CBC is within normal limits with a white blood cell count of 7.2 hemoglobin of 13.8 hematocrit of 41.5. His platelets are 209. His coags are within normal limits with a PT of 10.6, INR of 0.9 and PTT of 30. His tox screen is negative. His electrolytes are within normal limits with good renal function with a BUN of 13 and creatinine 0.9. He has a nonfasting glucose 123. While in the ER the patient's symptoms resolved. The patient is admitted to the hospital for TIA. Discharge Providers Date of admission: 09/25/18 14:16 Discharge Date: 09/26/18 Primary care physician: Garrett Pisano MD Consults: 09/25/18 14:08 Consult to Discharge Planning Routine Comment: Consult to Occupational Therapy Evaluate & Treat Comment: Physician Instructions: Evaluate and treat 09/25/18 16:48 Consult to Speech Therapy Evaluate & Treat Comment: expressive aphasia Physician Instructions: Evaluate and treat Discharge provider: Milana Anne DO Summary Discharge Diagnosis: 1. Acute expressive aphasia, present on admission. Resolved. 2. Hypertension, chronic, present on admission. Stable. 3. Environmental allergies, chronic present on admission. Stable. 4. Depression, chronic, present admission. Stable. Hospital Course: Itz Mcpherson is a 58-year-old male with past medical history significant for hype rtension, hyperlipidemia, and probable CAPRICE who presented for expressive aphasia. 1. Acute expressive aphasia, present on admission. Resolved. -Patient presented with acute onset confusion, expressive aphasia with difficulty word finding, numbness of for head with frontal headache, and right peripheral vision loss present upon arrival to ED and resolved within 1 hour of presentation. -Cardiac risk factors include: Hypertension, hyperlipidemia, probable obstructive sleep apnea, stress, gender, and family history. -Differential diagnosis includes: Possible frontal lobe headache with neurolo gical sequelae versus TIA. -Initial NIH score 1 in ED, now 0. Continued to assess neuro status frequently. -CT of the brain and MRI did not demonstrate any acute pathology and angiography demonstrated normal cerebral, carotid and vertebral circulation. -Echocardiogram demonstrated normal LV with EF of 60-65%, no wall motion abnormalities, borderline right ventricular dilation, trace mitral and tricuspid regurgitation, mild enlargement of ascending aorta, and findings suggestive of small PFO. -Patient reported previous ultrasound of the carotid arteries demonstrated some degree of plaque and he was started on simvastatin and aspirin. Continued aspirin 81 mg daily and simvastatin 20 mg daily. -Risk stratified with hemoglobin A1c which was within normal limits at 5.6% and fasting lipid panel which was well controlled and demonstrated: Total cholesterol 143, triglycerides 98, LDL 83, HDL 40. -Consulted occupational and speech therapy for evaluation and treatment. No needs or further recommendations. -Recommend outpatient sleep study in the next 2-4 weeks for probable obstructive sleep apnea as spouse reports he hold his breath for prolonged periods of time, he is mildly bradycardic especially while sleeping, has large neck circumference and endorses daytime sleepiness. 2. Hypertension, chronic, present on admission. Stable. -Initial blood pressure 153/98 in ED. -Allowed for permissive hypertension for 24 hours then continued home amlodipine 5 mg daily at bedtime and benazepril 10 mg twice daily. -Continued to monitor blood pressures overnight. 3. Environmental allergies, chronic present on admission. Stable. -MRI finding of maxillary sinus mucosal thickening bilaterally, left greater than right. Complaints of frontal headache without maxillary sinus tenderness on percussion. -Continue certrizine 10 mg daily for nasal congestion. -May want to consider referral to ENT and will defer to PCP. 4. Depression, chronic, present admission. Stable. -Patient is appropriate and animated, conversant and cooperative. -Continue home escitalopram 10 mg daily at bedtime. Status at Discharge Functional status at discharge: independent ambulation Overall status at discharge: patient is back to baseline Exam Vital Signs (past 8 hours): - 09/26/18 06:00 09/26/18 08:00 Temperature 98.6 F 98.4 F Pulse Rate 61 55 L Respiratory Rate 16 18 Blood Pressure 142/98 H 136/90 Pulse Oximetry 98 95 Oxygen Delivery Method Room Air Oxygen Flow Rate 0 Narrative Exam Narrative: General: Middle aged gentleman sitting in bed and in no acute distress, well- developed, well-nourished, appropriately interactive. HEENT: Normocephalic, atraumatic. External ears without defect. Pupils equal, round, and reactive to light and accommodation. Anicteric sclerae, moist conjunctivae, and no lid lag. Oropharynx free of erythema and cobble stoning with moist mucosa. Neck: Supple with full range of motion. No jugular venous distension. No bruits. No lymphadenopathy or thyromegaly. Large neck circumference. Cardiovascular: Regular rhythm, mild bradycardia, without murmurs, rubs, or gallops appreciated Pulmonary: Clear to auscultation bilaterally without crackles, wheezes, or rhonchi. Normal respiratory effort with no use of accessory muscles. Abdomen: Soft, bowel sounds present, nontender, nondistended. No hepatosp lenomegaly or masses appreciated. Extremities: No clubbing, cyanosis, or edema. Skin: Normal temperature, turgor, and texture; no rash, ulcers, or subcutaneous nodules appreciated. Neurological: Cranial nerves grossly intact. Normal muscle strength, tone, and bulk. Reflexes, coordination, and sensory function within normal limits. No known gait impairment. Cerebellar function intact with gztk-gf-kuch and idytyg-ab-hbog. No facial droop. No slurred speech. Negative Babinski. No focal neurological deficits. Psychiatric: Normal mood and affect. Alert and oriented to person, place, and time. Objective Labs Result Diagrams: 09/25/18 13:00 09/25/18 13:00 Labs: Laboratory Results - last 24 hr 09/25/18 09/25/18 09/25/18 13:00 13:00 13:00 WBC 7.2 RBC 4.60 Hgb 13.8 Hct 41.5 MCV 90.1 MCH 30.1 MCHC 33.3 RDW 13.7 Plt Count 209 Neut % (Auto) 70.1 Lymph % (Auto) 20.3 L Charles % (Auto) 7.9 Eos % (Auto) 1.2 L Baso % (Auto) 0.5 Neut # (Auto) 5100 Lymph # (Auto) 1500 Charles # (Auto) 600 Eos # (Auto) 100 Baso # (Auto) 0 PT 10.6 INR 0.9 APTT 30 Sodium 142 Potassium 3.7 Chloride 106 Carbon Dioxide 27 BUN 13 Creatinine 0.90 Estimated GFR > 60.0 BUN/Creatinine Ratio 14.4 Glucose 123 H Hemoglobin A1c Calcium 9.5 Triglycerides Cholesterol LDL Cholesterol, Calc HDL Cholesterol Urine Opiates Screen Ur Oxycodone Screen Urine Methadone Screen Ur Barbiturates Screen U Tricyclic Antidepress Ur Phencyclidine Scrn Ur Amphetamines Screen U Methamphetamines Scrn Ur MDMA Scrn (Ecstasy) U Benzodiazepines Scrn Urine Cocaine Screen U Marijuana (THC) Screen 09/25/18 09/26/18 09/26/18 13:40 05:55 05:55 WBC RBC Hgb Hct MCV MCH MCHC RDW Plt Count Neut % (Auto) Lymph % (Auto) Charles % (Auto) Eos % (Auto) Baso % (Auto) Neut # (Auto) Lymph # (Auto) Charles # (Auto) Eos # (Auto) Baso # (Auto) PT INR APTT Sodium Potassium Chloride Carbon Dioxide BUN Creatinine Estimated GFR BUN/Creatinine Ratio Glucose Hemoglobin A1c 5.6 Calcium Triglycerides 98 Cholesterol 143 LDL Cholesterol, Calc 83 HDL Cholesterol 40 Urine Opiates Screen Negative Ur Oxycodone Screen Negative Urine Methadone Screen Negative Ur Barbiturates Screen Negative U Tricyclic Antidepress Negative Ur Phencyclidine Scrn Negative Ur Amphetamines Screen Negative U Methamphetamines Scrn Negative Ur MDMA Scrn (Ecstasy) Negative U Benzodiazepines Scrn Negative Urine Cocaine Screen Negative U Marijuana (THC) Screen Negative Discharge Plan Discharge Plan Patient Disposition: Home Discharge comment: You're being discharged home. Your CT scan and MRI did not demonstrate stroke, occlusion, aneurysms, or anything concerning. Your echocardiogram demonstrated a small patent foramen ovale or PFO which will put you at an increased risk of stroke if you develop blood clots. Your cholesterol is well controlled on simvastatin. Your blood pressure was initially high on admission likely related to headache and/or the bodies natural way of increasing blood flow to the brain. Continue to monitor your blood pressure closely at home and with your PCP. It is unclear whether you have had a TIA or a headache with neurological sequelae likely related to uncontrolled obstructive sleep apnea. Please follow-up with your primary care physician, Dr. Elena, at your scheduled appointment regarding your hospitalization. Your heart rate was low on EKG and while sleeping (high 40's to 50's with normal heart rate 60-100) which further reiterates likelihood of obstructive sleep apnea. Recommend an expedited sleep study to assess for obstructive sleep apnea and treatment with CPAP if present. Your are close to being prediabetic. Continue lifestyle modification including: diet and exercise as discussed. If your symptoms return please be evaluated by a medical professional immediately and you may need to see a neurologist in the future. You are allowed to return back to work. Discharge Med Rec/Prescriptions Prescriptions: Continued simvastatin 20 mg tablet 20 mg PO QPM RF: 0 sildenafil (antihypertensive) 20 mg tablet 1 dose PO PRN PRN (Reason: Erectile Dysfunction) RF: 0 benazepril 10 MG tablet 10 mg PO BID RF: 0 amlodipine [Norvasc] 5 MG tablet 5 mg PO QPM RF: 0 cetirizine 10 mg Tablet 10 mg PO QPM PRN (Reason: Allergy Symptoms) RF: 0 ranitidine HCl [Zantac] 150 mg Tablet 150 mg PO BEDTIME RF: 0 escitalopram oxalate 10 mg tablet 10 mg PO QPM RF: 0 aspirin 81 mg Tablet,Delayed Release (Dr/Ec) 81 mg PO QPM RF: 0 Follow up/Referrals: Elzbieta Elena, [Non-Staff] - 3-5 Days (Follow up with Dr. Elena on October 04 at 1:15 pm.) Provider Discharge Instructions Diet: Low-fat, Low-sodium and Low-cholesterol Activity: As tolerated Visit Report/Discharge Packet Instructions: The Mediterranean Diet and Good Health, The DASH Diet, DI for Transient Ischemic Attack, DI for Polysomnography, DI for Obstructive Sleep Apnea -- Adult, Mediterranean Diet May Reduce the Risk of Stroke in People with High Risk o Discharge Data Primary Care Provider: Garrett Pisano Attending Provider: Milana Anne Admit Date/Time: 09/25/18 14:16 Discharges patient from system. Discharge Date/Time: 09/26/18 12:15 Quality VTE Deep Vein Thrombosis/Pulmonary Embolism Present on Admission: No
--- NOTE | 2018-09-26 15:54 | CM.DANOTE ---
Discharge Planning/Care Management DCP: assessment: Case received, EMR reviewed and discussed in Team Rounds this morning. Dr. Anne noted that OT/PT and [facility] [employer] were ordered but all had cleared him for home setting. She said she would be seeing him today but planned for a likely d/c to home and OUTPT followup. She later stopped in for an update: stated that pt was fine for home and was ok to go back to work. Pt is a 58 year old male who admitted yesterday afternoon to care of hospitalist team. Payer: [employer] PCP: Dr. Epifanio Pisano He lives with his in [place]. Admission status: OBS: confirmed by UR JIAN Harris. Went to check in with pt this after update from Dr. Anne. He had already left for home. No d/c concerns were noted by the care team members. CM Discharge Assessment Start: 09/26/18 15:50 Freq: Status: Active Protocol: Document 09/26/18 15:52 ITV (Rec: 09/26/18 15:53 ITV [id number]) Discharge Planning Assessment Advance Directives? No History Provided By Patient Medical Record Prior Living Arrangements House Household Members spouse children friend(s) Independent with ADL's Yes Is patient alert and oriented? Yes Review Status In Process
== END 2018-09-26 12:15 | disposition home or self-care (01) ==
LOC: ED 14:04 → AC 14:18
PROVIDERS: Nurse Practitioner; Admitting Provider Internal Medicine; Emergency Provider Emergency Medicine; PCP Family Medicine; Visit Provider Internal Medicine
DX: R29.818 Other symptoms and signs involving the nervous system (principal); R47.01 Aphasia; I10 Essential (primary) hypertension; F32.9 Major depressive disorder, single episode, unspecified; T78.40XA Allergy, unspecified, initial encounter
CPT/HCPCS: 36415; 36591; 70450; 70548; 70553; 80048; 80061; 80305; 81003; 82962; 83036; 85025; 85610; 85730; 92523; 93005; 93041; 93306; 96360; 96361; 96372; 97165; 99283; 99285; G0378; J1644

== ENCOUNTER → 2019-12-30 08:21 | Outpatient (CLI) | payer OTHER, SELFPAY ==
--- NOTE | 2019-12-30 | DI.RAD.S_ITS ---
PROCEDURE: FL KNEE INJECTION MR/CT RT INDICATIONS: Other tear of medial meniscus, current injury, rig COMPARISON: [facility] Outside Film, MR, MR KNEE RIGHT WITHOUT CONTRAST, 08/08/2019, 9:36. TECHNIQUE: The indications, alternatives, benefits, risks, and complications of the procedure were explained to the patient. Written informed consent was obtained and placed in the chart. The knee was examined fluoroscopically, and a site chosen for knee joint injection. The skin was prepped and draped in a sterile fashion, and 1% Lidocaine infiltrated from the skin down to the articular surface. A hypodermic needle was then introduced into the joint and iodinated contrast media was instilled to confirm the intra-articular needle tip placement. This was followed by approximately 50 mL dilute solution of a gadolinium containing MR contrast agent. The needle was removed and a bandage was applied. An Jose Carlos wrap was then applied around the knee joint to keep the contrast from collecting in the suprapatellar recess. The patient experienced no complications throughout the procedure and left the fluoroscopic suite in no apparent distress. FINDINGS: Single fluoroscopic spot image demonstrates intra-articular location to injected iodinated contrast. IMPRESSION: Successful fluoroscopically guided administration of dilute Gadolinium solution into the knee joint for MR arthrogram. Dictated by: Pedro Pérez M.D. on 12/30/2019 at 10:39 Approved by: Pedro Pérez M.D. on 12/30/2019 at 10:40
--- NOTE | 2019-12-30 | DI.MRI.S_ITS ---
PROCEDURE: MR KNEE RT W CON INDICATIONS: Other tear of medial meniscus, current injury, rig TECHNIQUE: After the administration of 50 mL of dilute intra-articular Gadolinium contrast, sagittal T1 spin echo with fat saturation and PD fast spin echo with fat saturation, coronal T1 spin echo with and without fat saturation, coronal T2 fast spin echo with fat saturation, axial PD fast spin echo with fat saturation through the knee. COMPARISON: [facility] Outside Film, MR, MR KNEE RIGHT WITHOUT CONTRAST, 08/08/2019, 9:36. FINDINGS: Image quality: Excellent. Menisci: Blunted and frayed appearance of the posterior horn and body. There is marked truncation of the free margin. There is also partial extrusion. Cannot exclude meniscocapsular separation/peripheral tear at the body image 22/10 although this is probably chronic. No definite intrasubstance gadolinium signal intensity. Lateral meniscus intact. Cruciate ligaments: Anterior cruciate ligament appears intact. Posterior cruciate ligament appears intact. Medial structures: There is medial bowing of the medial collateral ligament, with mild internal signal changes and no complete rupture. There is adjacent soft tissue edema. The appearance could reflect reactive changes to medial compartment pathology, versus low-grade sprain of the MCL. Pes anserinus tendons appear grossly unremarkable. Semimembranosus tendon appears intact. Lateral structures: The lateral collateral ligament intact. Biceps femoris tendon appears intact. Popliteus tendon grossly unremarkable. Iliotibial band appears intact. Anterior structures: Quadriceps tendon intact. Medial and lateral patellofemoral ligaments intact. Patellar tendinopathy with adjacent soft tissue edema and fluid. Hoffa's fat pad unremarkable. Bones and cartilage: No focal marrow contusion or discrete low signal fracture line. Within the medial compartment, full-thickness cartilage defect involving the weight-bearing femoral condyle measuring approximately 9 mm as measured on coronal pulse sequences. There is also diffuse near full thickness loss of the tibial cartilage. Prominent subchondral edema Within the lateral compartment, no focal cartilage defect. Within the patellofemoral compartment, no focal cartilage defect Joint space: No Stock's cyst. No specific evidence of intra-articular loose body. IMPRESSION: Marked blunted and frayed appearance of the posterior horn and body of the medial meniscus with partial extrusion. This could reflect postsurgical changes from prior partial meniscectomy, although cannot exclude recurrent tear especially at the periphery of the body. This appears more conspicuous since the prior study. Please correlate clinically and with any prior surgical history. No intrasubstance gadolinium signal intensity identified. Patellar tendinopathy, which appears mildly progressed Full-thickness central weight-bearing cartilage defect involving the medial femoral condyle, and diffuse near full-thickness tibial cartilage loss. These findings appear new. Dictated by: Yoni Cotter M.D. on 12/30/2019 at 13:51 Approved by: Yoni Cotter M.D. on 12/30/2019 at 14:09
== END ==
PROVIDERS: PCP Family Medicine; Referring Provider Family Medicine; Visit Provider Orthopaedic Surgery
DX: S83.241A Other tear of medial meniscus, current injury, right knee, initial encounter (principal); X58.XXXA Exposure to other specified factors, initial encounter
CPT/HCPCS: 27369; 73722; 77002

== ENCOUNTER → 2020-04-16 15:30 | Outpatient (CLI) | payer OTHER, SELFPAY ==
[2020-04-16 16:27] LABS: Add Manual Diff / Slide Review NO; Basophils Absolute Auto 0 /uL (0-100); Basophils Percent Auto 0.7 % (0-2); Eosinophils Absolute Auto 100 /uL (0-450); Hematocrit 37.8 % (41-53); Hemoglobin 13.1 g/dL (13.5-17.5); Lymphocytes Absolute Auto 1600 /uL (1100-4500); Lymphocytes Percent Auto 27.2 % (25-40); Mean Corpuscular HGB Conc 34.6 % (30-36); Mean Corpuscular Hemoglobin 31.2 PG (26-34); Monocytes Absolute Auto 700 /uL (0-900); Monocytes Percent Auto 11.7 % (3-14); Neutrophils Absolute Auto 3500 /uL (1500-7000); Neutrophils Percent Auto 58.4 % (50-75); Platelet Count 200 X10^3/uL (150-400); Red Cell Distribution Width 13.8 % (11.6-14.8); White Blood Cell Count 5.9 X10^3/uL (4.5-11.0)
[2020-04-16 17:02] LABS: Carbon Dioxide 34 mmol/L (22-32); Chloride 103 mmol/L (98-107); HEMOLYSIS < 15 (0-50); Sodium 139 mmol/L (137-145)
== END ==
PROVIDERS: PCP Family Medicine; Referring Provider Orthopaedic Surgery; Visit Provider Orthopaedic Surgery
DX: Z01.812 Encounter for preprocedural laboratory examination (principal); Z01.818 Encounter for other preprocedural examination
CPT/HCPCS: 36415; 80051; 85025

== ENCOUNTER 2020-06-26 19:43 | Emergency (ER) | payer OTHER, SELFPAY ==
[2020-06-26 20:03] VITALS: BP 146/87; PULSE 71; RESP 15; TEMP 36.8; O2SAT 97; BMI 29.5
--- NOTE | 2020-06-26 20:13 | DI.RAD.S_ITS ---
PROCEDURE: XR HAND LT MIN 3V INDICATIONS: cut 2 fingers with table saw TECHNIQUE: 3 views of the hand(s) acquired. COMPARISON: None. FINDINGS: Bones: No fractures or dislocations. Carpal bones are normally aligned. No suspicious bony lesions. Soft tissues: No suspicious soft tissue calcifications. Small radiopaque foreign body at the tuft of the 4th digit. Soft tissue injury of the distal 2nd and 3rd digits. IMPRESSION: No fracture. Small radiopaque foreign body at the tuft of the 4th digit. Dictated by: Jaron Flores M.D. on 06/26/2020 at 22:20 Approved by: Jaron Flores M.D. on 06/26/2020 at 22:21
[2020-06-26] MEDS: OXYCODONE/ACETAMINOPHEN 5/325 TABLET 1 TAB PO (20:39)
[2020-06-26] MEDS: IBUPROFEN 400 MG TABLET PO (20:39)
[2020-06-26] MEDS: TET,DIPH,PERTUSS(ACELL),VAC/PF 0.5 ML SYRINGE IM (20:40)
[2020-06-26] MEDS: LIDO 1%/SOD BICARB 8.4% (10ML) 10 ML SYRINGE INJ (22:51)
[2020-06-26] MEDS: ONDANSETRON 4 MG ODT SL (23:35)
[2020-06-26] MEDS: OXYCODONE/APAP 5/325 PREPACK 1 BOTTLE MISC (23:35)
[2020-06-26] MEDS: BACITRACIN OINT 0.9 GM PCKT 2 APPLIC TOP (23:35)
[2020-06-26 23:37] VITALS: BP 115/70; PULSE 51; RESP 16; O2SAT 98
--- NOTE | 2020-06-27 04:08 | ED.WOUNDLAC ---
HPI - Wound/Laceration General Chief Complaint: Wound/Laceration Stated Complaint: CUT LEFT HAND FINGERS ON SAW Time Seen by Provider: 06/26/20 20:30 Source: patient Mode of arrival: Ambulatory Limitations: no limitations History of Present Illness HPI narrative: 60-year-old gentleman with a history of hypertension was working in his garage and ran his left fingers into his table saw sustaining injuries to the dorsal surface of the 1st and 2nd at digits and a small abrasion to the 3rd all at approximately the level of DIP joint. Related Data Home Medications Medication Instructions Recorded Confirmed amlodipine [Norvasc] 5 mg PO QPM 09/25/18 09/25/18 aspirin 81 mg PO QPM 09/25/18 09/25/18 benazepril 10 mg PO BID 09/25/18 09/25/18 cetirizine 10 mg PO QPM PRN 09/25/18 09/25/18 escitalopram oxalate 10 mg PO QPM 09/25/18 09/25/18 ranitidine HCl [Zantac] 150 mg PO BEDTIME 09/25/18 09/25/18 sildenafil (pulm.hypertension) 1 dose PO PRN PRN 09/25/18 09/25/18 simvastatin 20 mg PO QPM 09/25/18 09/25/18 Previous Rx's Medication Instructions Recorded cephalexin 500 mg PO TID #21 cap 06/26/20 oxycodone-acetaminophen 1 tab PO Q6H PRN #10 tab 06/26/20 Allergies Allergy/AdvReac Type Severity Reaction Status Date / Time No Known Drug Allergies Allergy Verified 09/25/18 13:16 Review of Systems Review of Systems Narrative: Pertinent positive and negative findings as per HPI Remainder of review of systems is otherwise unremarkable for Constitutional: Fevers, chills, weakness ENT: No sore throat, neck pain, ear pain CV: Chest pain, palpitations, Respiratory: Cough, wheeze, dyspnea GI: Nausea, vomiting, diarrhea, Patient History Medical History Depression Dyspepsia Hypertension Malignant melanoma Surgical History History of melanoma excision Family History Father Abdominal aortic aneurysm Mother Diabetes mellitus Brother Hypertension Social History household members: spouse, children and friend(s) Smoking Status: Never smoker alcohol intake: current Smoking Status: Never smoker alcohol intake frequency: 0-2 drinks per day Substance Use Type: does not use Exam Narrative Exam Narrative: General: Alert appropriate in no acute distress Respiratory: Able to speak in full sentences, no obvious respiratory distress Skin: No obvious rashes, warm and dry Neurologic: Grossly intact no obvious asymmetries or abnormalities Psych: appropriate insight and affect, cooperative Extremity: Left hand is examined. There is a 2 cm laceration over the DIP joint of the index finger with significant disruption of the nail bed, 2.5 cm laceration over the D IP with minor nail bed involvement. Small abrasion to the edge of the fingernail and cuticle on the ring finger. For both of the finger lesions, he does seem to have full extension of the distal phalanx and is neurovascularly intact. The index finger on manual exam seems somewhat unsteady but no obvious tendon involvement. Will brace in extension after suture. Both wounds have at least 2 mm of missing tissue so wound edge reapproximation will not be perfectly aesthetic Initial Vital Signs Initial Vital Signs: Vital Signs Temperature 98.2 F 06/26/20 20:03 Pulse Rate 71 06/26/20 20:03 Respiratory Rate 15 06/26/20 20:03 Blood Pressure 146/87 H 06/26/20 20:03 Pulse Oximetry 97 06/26/20 20:03 Procedures Laceration Repair Finger lacerations: Site: hand (index finger) Side (If applicable): left Size (cm): 2 Description: irregular Depth: involves muscle layer Local Anesthetic: lidocaine 1% and with bicarb Amount of anesthesia used (mL): 3 Pre-repair: wound explored, irrigated extensively, deep structures intact and wound margins revised Skin layer closed with: nylon Size (cm): 4-0 Number of sutures: 4 Technique: simple, interrupted finger laceration #2: Site: hand (middle finger, dorsal side) Side (If applicable): left Size (cm): 2.5 Description: irregular Depth: involves muscle layer Local Anesthetic: lidocaine 1% and with bicarb Amount of anesthesia used (mL): 4 Pre-repair: wound explored, irrigated extensively, deep structures intact and wound margins revised Skin layer closed with: nylon Size (cm): 4-0 Number of sutures: 4 Technique: simple, interrupted Course Orders Ordered: ED Orders 06/26/20 20:13 XR hand LT min 3V Stat Discontinued Medications Bacitracin (Bacitracin Oint 0.9 Gm Pckt) 2 applic TOP NOW ONE Stop: 06/26/20 20:49 Last Admin: 06/26/20 23:35 Dose: 2 applic Documented by: JUANIS Diphtheria/Tetanus/Acell Pertussis (Tet,Diph,Pertuss(Acell),Vac/Pf 0.5 Ml Syringe) 0.5 ml IM .ONCE ONE Stop: 06/26/20 20:37 Last Admin: 06/26/20 20:40 Dose: 0.5 ml Documented by: ANGEL Ibuprofen (Ibuprofen 400 Mg Tablet) 400 mg PO NOW ONE Stop: 06/26/20 20:35 Last Admin: 06/26/20 20:39 Dose: 400 mg Documented by: ANGEL Lidocaine/Sodium Bicarbonate (Lido 1%/Sod Bicarb 8.4% (10ml) 10 Ml Syringe) 10 ml INJ NOW ONE Stop: 06/26/20 22:45 Last Admin: 06/26/20 22:51 Dose: 10 ml Documented by: MAKAYLA Ondansetron HCl (Ondansetron 4 Mg Odt) 4 mg SL NOW ONE Stop: 06/26/20 23:26 Last Admin: 06/26/20 23:35 Dose: 4 mg Documented by: JUANIS Oxycodone/Acetaminophen (Oxycodone/Acetaminophen 5/325 Tablet) 1 tab PO NOW ONE Stop: 06/26/20 20:35 Last Admin: 06/26/20 20:39 Dose: 1 tab Documented by: ANGEL Oxycodone/Acetaminophen (Oxycodone/Apap 5/325 Prepack) 1 bottle MISC SEEINSTR ONE Stop: 06/26/20 23:26 Last Admin: 06/26/20 23:35 Dose: 1 bottle Documented by: JUANIS Vital Signs Vital signs: Vital Signs - 8 hr 06/26/20 23:37 Pulse Rate 51 L Respiratory Rate 16 Blood Pressure 115/70 Pulse Oximetry 98 MDM - Wound/Laceration Medical Records Attestation: I reviewed the patient's medical records. MDM Narrative Medical decision making narrative: Table saw laceration to the dorsum of the index and middle finger over the D IP joints. Neither joint appeared to be completely involved and tendons do seem to be intact however I am a bit concerned about tendons in the index finger. Index finger has significant disruption of the nail bed. Wound is approximated as best possible however there was quite a bit of epidermal layer that is missing and there is approximately 2 mm of exposed middle area of the wound to heal by secondary intention. Similar findings on the middle finger. Not as much nail bed involvement. After suturing both wounds are placed in an aluminum foam splints to heal in full extension. Will recommend sutures out in 10 days and he is placed on antibiotics. Clearly reviewed signs and symptoms of infection including concerns for tendon infection. He is safe for home discharge Discharge Plan Departure Patient Disposition: Home Clinical Impression: Laceration Instructions: DI for Laceration Repair, DI for Wound Infection Activity Restrictions/Additional Instructions: Thank you for coming in today The lacerations on the back of your 1st and 2nd fingers have a moderate amount of actual skin missing. The wounds are closed but will take some time to completely close over. The wound on your 1st finger is very close to the joint and I would like you to start antibiotics tomorrow to prevent any infection. I am also going to suggest that for the 1st finger, you leave the splint in place so that your finger is always fully extended while it is healing. I do not think that the cut involved tendons but if it did this will give us the best chance to heal perfectly. The wound on your 2nd finger very much involves the nail bed and I would expect the nail to either not grow back at all or to grow back with significant abnormalities. The wound on the 3rd finger will simply need a Band-Aid. Please anticipate having the sutures taken out on or about July 06. Keep the wounds clean and covered. Using antibiotic ointment for the 1st couple of days will help so that the dressing does not stick to the wounds. Using 400 mg of ibuprofen (2 [id number] pills) and 1 Tylenol every 6 hours can be very helpful in controlling pain. For severe pain using 1 Percocet and 400 mg of ibuprofen may be helpful If you are having increasing pain, red streaks heading up from the fingers any drainage from the fingers please return to the emergency department Prescriptions: New cephalexin 500 mg capsule 500 mg PO TID Qty: 21 RF: 0 oxycodone-acetaminophen 5-325 mg tablet 1 tab PO Q6H PRN (Reason: pain) Qty: 10 RF: 0 No Action simvastatin 20 mg tablet 20 mg PO QPM RF: 0 sildenafil (pulm.hypertension) 20 mg tablet 1 dose PO PRN PRN (Reason: Erectile Dysfunction) RF: 0 benazepril 10 MG tablet 10 mg PO BID RF: 0 amlodipine [Norvasc] 5 MG tablet 5 mg PO QPM RF: 0 cetirizine 10 mg Tablet 10 mg PO QPM PRN (Reason: Allergy Symptoms) RF: 0 ranitidine HCl [Zantac] 150 mg Tablet 150 mg PO BEDTIME RF: 0 escitalopram oxalate 10 mg tablet 10 mg PO QPM RF: 0 aspirin 81 mg Tablet,Delayed Release (Dr/Ec) 81 mg PO QPM RF: 0 Referrals: Elzbieta Elena DO [Primary Care Provider] -
== END 2020-06-26 23:45 | disposition home or self-care (01) ==
PROVIDERS: Emergency Provider Emergency Medicine; PCP Family Medicine
DX: S61.311A Laceration without foreign body of left index finger with damage to nail, initial encounter (principal); S61.213A Laceration without foreign body of left middle finger without damage to nail, initial encounter; W29.8XXA Contact with other powered hand tools and household machinery, initial encounter; Z23 Encounter for immunization
CPT/HCPCS: 13132; 73130; 90471; 99283; 99284; 90715

== ENCOUNTER → 2021-06-03 14:55 | Outpatient (CLI) | payer OTHER, SELFPAY ==
[2021-06-03 15:42] LABS: Add Manual Diff / Slide Review NO; Basophils Absolute Auto 0 /uL (0-100); Basophils Percent Auto 0.5 % (0-2); Eosinophils Absolute Auto 100 /uL (0-450); Eosinophils Percent Auto 1.3 % (2-4); Hematocrit 38.7 % (41-53); Hemoglobin 13.2 g/dL (13.5-17.5); Lymphocytes Absolute Auto 2300 /uL (1100-4500); Mean Corpuscular Hemoglobin 30.4 PG (26-34); Mean Corpuscular Volume 89.2 fL (80-100); Monocytes Absolute Auto 900 /uL (0-900); Neutrophils Absolute Auto 4700 /uL (1500-7000); Neutrophils Percent Auto 58.2 % (50-75); Platelet Count 218 X10^3/uL (150-400); Red Blood Cell Count 4.34 X10^6/uL (4.5-5.9); Red Cell Distribution Width 13.3 % (11.6-14.8)
[2021-06-03 16:24] LABS: BUN Creatinine Ratio 17.9 (6-22); Blood Urea Nitrogen 17 mg/dL (9-20); Calcium 9.3 mg/dL (8.4-10.2); Carbon Dioxide 32 mmol/L (22-32); Chloride 103 mmol/L (98-107); Estimated Glomerular Filt Rate > 60.0 mL/min (>60); Glucose 88 mg/dL (70-100); HEMOLYSIS < 15 (0-50); Potassium 3.9 mmol/L (3.4-5.1); Sodium 139 mmol/L (137-145)
== END ==
PROVIDERS: Referring Provider Orthopaedic Surgery; Visit Provider Orthopaedic Surgery
DX: M25.561 Pain in right knee (principal); R73.9 Hyperglycemia, unspecified; Z01.812 Encounter for preprocedural laboratory examination
CPT/HCPCS: 36415; 80048; 83036; 85025

== ENCOUNTER → 2021-06-28 14:30 | Outpatient (CLI) | payer OTHER, SELFPAY ==
[2021-06-28 16:59] LABS: COVID19 -Nasal RAPID Negative (Negative)
== END ==
PROVIDERS: Visit Provider Family Medicine Sleep Medicine
DX: Z20.822 Contact with and (suspected) exposure to COVID-19 (principal)
CPT/HCPCS: 87635; C9803

== ENCOUNTER 2021-06-30 11:22 | Inpatient (IN) | payer OTHER, SELFPAY ==
[2021-06-21 09:02] VITALS: BMI 30.4
[2021-06-30] VITALS (14 sets, daily range): BP systolic 104–134; BP diastolic 61–78; PULSE 57–81; RESP 10–18; TEMP 35.7–37.1; O2SAT 95–100; BMI 30.4
--- NOTE | 2021-06-30 06:00 | DI.RAD.S_ITS ---
PROCEDURE: XR KNEE RT 1TO2V INDICATIONS: post op total knee TECHNIQUE: 2 view(s) of the knee acquired. COMPARISON: None. FINDINGS: Bones: Patient is status post total knee joint arthroplasty. Hardware components are in expected positions. Visualized bony structures are intact. Soft tissues: Overlying postoperative changes are noted. IMPRESSION: Expected appearance of the right total knee arthroplasty. Dictated by: Jaron Flores M.D. on 06/30/2021 at 20:07 Approved by: Jaron Flores M.D. on 06/30/2021 at 20:07
[2021-06-30] MEDS: ACETAMINOPHEN 325 MG TABLET 975 MG PO (12:07)
[2021-06-30] MEDS: PREGABALIN 75 MG CAPSULE PO (12:16)
[2021-06-30] MEDS: CELECOXIB 200 MG CAPSULE PO (12:17)
[2021-06-30] MEDS: LACTATED RINGERS 1,000 ML 42 ML IV ×2 (12:18→16:16)
--- NOTE | 2021-06-30 13:10 | PM.PREOP ---
Pre-operative Note COVID-19 COVID-19 status: Negative Result date/Date tested (Pos, Neg/Pending): 06/28/21 Interval Note History & Physical reviewed/Exam performed by Physician: Yes Changes to H&P: No
[2021-06-30] MEDS: CEFAZOLIN 2 GM/20 ML SYRINGE IV (14:40)
[2021-06-30] MEDS: TRANEXAMIC ACID 1,000 MG VIAL 1000 MG INJ ×2 (14:40→16:16)
--- NOTE | 2021-06-30 15:04 | SUR.OPER ---
Supine on padded OR bed. Pillow under head, arms secured on padded armboards <90 degree abduction. Safety belt across torso. Non-operative leg secured with tape over blanket over lower leg. Operative leg secured in DeMayo positioner. Foam padded brace at thigh of operative leg.
[2021-06-30] MEDS: BUPIVACAINE 0.25% (PF) 60 ML, EPINEPHrine 0.3 MG INJ (16:00)
[2021-06-30] MEDS: BUPIVACAINE LIPOSOME 266 MG/20 ML VIAL INJ (16:00)
[2021-06-30] MEDS: MORPHINE 4 MG/ML INJ INJ (16:00)
--- NOTE | 2021-06-30 16:34 | P.OP_ITS ---
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 Radiographs appear to show loosening of the tibial component. He does not appear to have infection based on his preoperative workup. He has agreed to revision to total knee replacement after discussion the risks benefits and alternatives. Risks discussed included but were not limited to: Failure to improve, stiffness, infection, nerve damage, deep venous thrombosis, pulmonary embolism, stroke, myocardial infarction, permanent paralysis and . Surgeon: Anthony Ventura Utilities Estimator And Drafter: Indu Jarrett Click Yes if Unassisted: Yes Anesthesia Type: General, Spinal and Local Operative Notes Findings: Well-fixed femoral component but obviously loose tibial component. Closure Type: primary Specimen(s): none sent Prosthetic devices, grafts, tissues, transplants, or devices: Implants used in this procedure were manufactured by the [employer] and included the BCS II Journey total knee replacement with a size 5 right Oxinium femoral component, size 5 right non porous tibial base plate, a 12 mm cross-linked tibial insert and a 35 mm oval Loreta II patella. Removed were the components of a Journey 2 unicompartmental arthroplasty on the femur and the tibia. Applied: implant(s) Estimated Blood Loss (mL): 25 Blood products transfused: none Tourniquet time (min): 70 Procedure in detail: The patient was seen in the pre-operative area, where the patient identified the right knee as the operative site and this was marked with my initials. The patient received pre-operative antibiotics, and was taken to the operating room and placed on the operative table in the supine position. After satisfactory anesthesia, a inspector timers out was performed. The right leg was encircled with a tourniquet about the proximal thigh, and the leg was prepared from the toes to the tourniquet with ChloroPrep in the usual fashion and draped through sterile drapes. The leg was elevated and exsanguinated with Eschmark bandage and the tourniquet inflated to 250 mmHg pressure. The knee was approached through an approximately 18 cm incision incorporating the previous unicompartmental scar and carried into the knee through a medial parapatellar arthrotomy. The anterior osteophytes and soft tissues were removed. The rotational landmarks of Misty's line and the transepicondylar axis were marked on the femur with electrocautery, and intramedullary guide holes for the femur and tibia were created. The distal femoral cut cutting guide was placed in 6 degrees of valgus using the intramedullary guide at the primary cut setting. At this point the revision osteotomes were used to remove the well-fixed femoral component. A small amount of bone came out with the component. It did not appear to be enough to require an augmented femoral component. The femoral cut was then made using the appropriate guide. We then removed the tibial component with the revision osteotomes. This was extremely easy suggesting that the component was grossly loose. Tibial cut was then made using the intramedullary guide, making a skim cut on the medial side, which measured as 12 mm off the lateral side. I elected not to use an augmented tibial component as this would have required removal of more bone both medially and laterally. The anterior, posterior and chamfer cuts were then made. The posterior osteophytes and soft tissues were then removed. The posterior capsule was injected with part of a mixture of 60 ml 0.25% Marcaine mixed with 20 ml Exparel and 4 mg of morphine for post-operative pain control. The remainder of this mixture was injected into the capsule and subcutaneous tissues during cement curing. The tibia was prepared with the rotation set by an extra medullary guide. Trial tibial and femoral components were then placed and the intercondylar notch cut through the femoral trial. Range of motion was 0-135 degrees, with good stability throughout the range. The patella was then cut to accommodate the patellar prosthetic. There was no need for a lateral release. The trials were then removed, and the femoral hole plugged with a bone plug. The bone was prepared with pulsatile lavage, and dried with a sponge. Cement was applied and the final prosthetics placed. Excess cement was removed during and after cement curing. After confirming there was no extruded cement posteriorly, the final tibial insert was placed. The knee was copiously irrigated and the tourniquet deflated. Hemostasis was obtained. The capsule was closed with in terrupted # 2 polyester suture. The subcutaneous layer was closed with 3-0 Vicryl, and the skin with a running 3-0 V-Lock suture and Dermabond. An Aquacel Ag dressing was applied and the patient was taken to recovery having tolerated the procedure well. Complications: none Post-operative Condition: stable Disposition: PACU Plan for aftercare: The patient will be maintained on a standard total knee replacement protocol with weight bearing as tolerated. The patient will receive aspirin and sequential compression devices for DVT prophylaxis. The patient will be discharged home when safe for the home environment.
--- NOTE | 2021-06-30 17:31 | SUR.PHASEI ---
1100 MLS LR INFUSED. 2ND BAG HUNG IN OR. TRANSPORTED TO [facility] BY EVELYNE ROUSSEAU RN WITH GLASSES,CELLPHONE, CPAP AND 2 CLOTHING BAGS.
[2021-06-30] MEDS: AMLODIPINE 5 MG TABLET PO (18:34)
[2021-06-30] MEDS: LACTATED RINGERS 1,000 ML 100 ML IV (18:34)
--- NOTE | 2021-06-30 18:54 | PC.NURSE ---
Pt to room 223 via bed from PACU. Pt awake and alert, oriented x 3. Able to move legs and feet. States he still has a bit of tingling on the tips of his toes. Denies pain, nausea, or shortness of breath. IVF infusing as ordered. SCD's on and running. Bed alarm on for safety and Pt agrees to call for any needs and to not get up without assistance. Urinal at the bedside for voiding.
[2021-06-30] MEDS: lisinopriL 10 MG TABLET PO (20:56)
[2021-06-30] MEDS: ASPIRIN EC 81 MG TABLET PO (20:56)
[2021-06-30] MEDS: ATORVASTATIN 20 MG TABLET 10 MG PO (20:56)
[2021-06-30] MEDS: DOCUSATE 100 MG CAPSULE PO (20:56)
[2021-06-30] MEDS: TRAMADOL 50 MG TABLET PO (20:58)
[2021-06-30] MEDS: ACETAMINOPHEN 325 MG TABLET 650 MG PO (20:58)
[2021-07-01 01:57] VITALS: BP 109/52; PULSE 79; RESP 16; TEMP 36.9; O2SAT 98
[2021-07-01 06:00] VITALS: BP 118/73; PULSE 72; RESP 16; TEMP 36.7; O2SAT 96
[2021-07-01] MEDS: PANTOPRAZOLE DR 20 MG TABLET PO (06:09)
[2021-07-01 06:31] LABS: Hematocrit 34.8 % (41-53); Hemoglobin 11.6 g/dL (13.5-17.5)
[2021-07-01 07:56] VITALS: BP 110/67; PULSE 70; RESP 18; TEMP 36.8; O2SAT 98
--- NOTE | 2021-07-01 08:29 | P.DS_ITS ---
History of Present Illness History of Present Illness Date Patient Seen: 07/01/21 Time Patient Seen: 08:29 Chief complaint: Right knee pain s/p right TKA conversion from Uni Narrative: Patient is complaining of [id number] right knee pain this morning. He den ies any nausea or vomiting. No new numbness or tingling, although he has baseline numbness on his right medial ankle. Overall he is feeling well and would like to be discharged home today. Discharge Providers Provider Date of admission: 06/30/21 11:22 Discharge Date: 07/01/21 Primary care physician: Elzbieta Elena DO Consults: 06/30/21 17:36 Consult to Discharge Planning Routine Comment: Consult to Physical Therapy Evaluate & Treat Comment: Physician Instructions: postop TKA protocol Discharge provider: Indu Jarrett PA-C Summary Hospital Course Discharge Diagnosis: Failure of right knee unicompartmental arthroplasty Hospital Course: Operative Date/Time/Diagnoses Date of procedure: 06/30/21 Time of procedure: 16:15 Procedure & Clinicians Procedure: Revision of tibial and femoral components of right knee unicompartmental arthroplasty Same procedure as scheduled: Yes Indications: The patient is a 61-year-old man who had a unicompartmental arthroplasty performed that has gone on to have continued pain.? Radiographs appear to show loosening of the tibial component.? He does not appear to have infection based on his preoperative workup.? He has agreed to revision to total knee replacement after discussion the risks benefits and alternatives.? Risks discussed included but were not limited to:? Failure to improve, stiffness, infection, nerve damage, deep venous thrombosis, pulmonary embolism, stroke, myocardial infarction, permanent paralysis and . Surgeon: Anthony Ventura Wall Insulation Sprayer: Indu Jarrett Click Yes if Unassisted: Yes Anesthesia Type: General, Spinal and Local Operative Notes Findings: Well-fixed femoral component but obviously loose tibial component. Closure Type: primary Specimen(s): none sent Prosthetic devices, grafts, tissues, transplants, or devices: Implants used in this procedure were manufactured by the [employer] and [employer] and included the BCS II Journey total knee replacement with a size 5 right Oxinium femoral component, size 5 right non porous tibial base plate, a 12 mm cross-linked tibial insert and a 35 mm oval Loreta II patella.? Removed were the components of a Journey 2 unicompartmental arthroplasty on the femur and the tibia. Applied: implant(s) Estimated Blood Loss (mL): 25 Blood products transfused: none Tourniquet time (min): 70 Status at Discharge Cognitive/behavioral status at discharge: oriented Functional status at discharge: uses cane/walker Overall status at discharge: patient is progressing back to baseline Exam Vital Signs (past 8 hours): - 07/01/21 01:57 07/01/21 06:00 07/01/21 07:56 Temperature 98.4 F 98.0 F 98.3 F Pulse Rate 79 72 70 Respiratory Rate 16 16 18 Blood Pressure 109/52 L 118/73 110/67 Pulse Oximetry 98 96 98 Oxygen Delivery Method Room Air Oxygen Flow Rate 0 Narrative Exam Narrative: Pleasant 61-year-old male, resting comfortably in bed, no acute distress. Dressing is clean, dry, intact. Bilateral lower extremity: Motor functions are grossly intact, sensation is slightly decreased in the right medial ankle as compared to the left, patient notes this is his baseline, calves are soft and nontender palpation. 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 Limit bending, lifting, twisting -continue with multimodal pain management including tramadol for [id number] pain and oxycodone as needed for severe pain -aspirin 81 mg b.i.d. x6 weeks for DVT prophylaxis -DC home today once cleared by PT Discharge Plan Discharge Plan Patient Disposition: Home Discharge orders & Medications Prescriptions: New acetaminophen 500 mg capsule 500 mg PO Q4H MDD Max 3000 mg per day PRN (Reason: fever or pain) Qty: 90 0RF aspirin 81 mg Tablet,Delayed Release (Dr/Ec) 81 mg PO BID 42 Days Qty: 84 0RF Rx Instructions: Prevent blood clots docusate sodium 100 mg Capsule 100 mg PO BID PRN (Reason: Constipation from narcotic pain meds) Qty: 20 0RF oxycodone 5 mg Tablet 5 mg PO Q3HR PRN (Reason: pain, severe (7-10)) Qty: 30 0RF Continued simvastatin 20 mg tablet 20 mg PO QPM 0RF sildenafil (pulm.hypertension) 20 mg tablet 1 dose PO PRN PRN (Reason: Erectile Dysfunction) 0RF benazepril 10 MG tablet 10 mg PO BID 0RF amlodipine [Norvasc] 5 MG tablet 5 mg PO QPM 0RF cetirizine 10 mg Tablet 10 mg PO QPM PRN (Reason: Allergy Symptoms) 0RF hydrochlorothiazide 12.5 mg Tablet 12.5 mg PO DAILY 0RF omeprazole 20 mg Tablet,Delayed Release (Dr/Ec) 20 mg PO QPM 0RF Changed tramadol 50 mg Tablet 50 mg PO Q4-6H PRN (Reason: pain (scale score 4-6)) Qty: 42 0RF Discontinued aspirin 81 mg Tablet,Delayed Release (Dr/Ec) 81 mg PO QPM 0RF Follow up/Referrals: Anthony Ventura MD [Physician] - 2 Weeks (Postop visit) Elzbieta Elena DO [Primary Care Provider] - Diet/Activity/Treatments Diet: Diet as Tolerated Other treatments: Medications: -Aspirin 81mg twice daily x6 weeks to prevent blood clots. -OTC Tylenol 500 mg 1 tablet every 4 hours as needed for pain/fever. Max 6 tablets per day. -diclofenac for inflammation -tramadol 50 mg take 1 tablet every 4 hours as needed for moderate pain -Oxycodone 5 mg take 1-2 tablets every 4 hours as needed for severe pain (narcotic pain medication). -Vistaril (hydroxyine) 25mg 1 tab every 4 hours as needed for spasms/pain/nausea. -As needed medications: -Ducolax and /or MiraLax as needed for constipation from narcotic pain medications. -Pepcid AC as needed for stomach upset (usually from aspirin or ibuprofen). Dressing/Wound care: -Remove the Jose Carlos wrap 48 hours after surgery. -Keep Aquacell dressing in place until postoperative follow-up office visit. -Okay to shower. Keep wound out of direct water stream. No soaking or submerging until all the scabs fall off (approximately 6 weeks). -Please call the office if dressing becomes wet, soiled, or saturated. Activities: -Weight-bearing as tolerated. Use front wheeled walker, and progress to cane when safe. -Continue with home exercises as directed by your physical therapist. -Elevate ?toes above the nose if you have significant swelling in your lower leg. (A wedge pillow is easiest.) -Ice your incision as needed for pain/inflammation/swelling. Protect your skin with a folded pillowcase. -Incentive Spirometer (breathing device from hospital): 5-10xs every hour while awake for the first 1-2 weeks. Follow-up: -Follow-up with your surgeon or PA in the office in 10-14 days after surgery. -Follow-up with your surgeon 6 weeks postoperatively. Call the office if you have chest pain, shortness of breath, significant swelling that will not resolve with elevating, fever over 101?, significantly worsening pain. [facility]: [phone] Skin/Wound/Dressing Care Report to your healthcare provider any signs of infection, such as:: chills, fever, night sweats, unusual drainage and unusual redness Visit Report/Discharge Packet Instructions: DI for Knee Replacement, DI for Prescription Opioid Use Stand Alone Forms: Surgery Discharge Discharge Data Primary Care Provider: Elzbieta Elena
[2021-07-01 09:18] VITALS: PULSE 64; RESP 18; O2SAT 98
[2021-07-01] MEDS: ASPIRIN EC 81 MG TABLET PO (09:33)
[2021-07-01] MEDS: ACETAMINOPHEN 325 MG TABLET 650 MG PO (09:33)
[2021-07-01] MEDS: TRAMADOL 50 MG TABLET PO (09:34)
[2021-07-01] MEDS: DOCUSATE 100 MG CAPSULE PO (09:35)
[2021-07-01] MEDS: hydroCHLOROthiazide 25 MG TABLET 12.5 MG PO (09:35)
[2021-07-01 09:36] VITALS: BP 110/67; PULSE 64
[2021-07-01] MEDS: lisinopriL 10 MG TABLET PO (09:36)
[2021-07-01] MEDS: LORATADINE 10 MG TABLET PO (09:37)
--- NOTE | 2021-07-01 10:35 | PT.IIE ---
Current Diagnoses Mechanical loosening of internal right knee prosthetic joint, initial encounter (06/30/21) Presence of right artificial knee joint (06/30/21) Surgery Performed Operation Date: 06/30/21 13:15 Actual Procedures p Total Knee Arthroplasty Revision(Right) - Anthony Ventura MD Medical History (Last Reviewed 07/01/21 @ 08:30 by Indu Jarrett PA-C) Depression Dyspepsia HLD (hyperlipidemia) Hypertension Malignant melanoma Sleep apnea TIA (transient ischemic attack) (~2019) Physical Therapy Inpatient Evaluation/Re-Eval M1 PT/OT-IP Prior Functional Status Start: 07/01/21 12:54 Freq: NEEDED Status: Active Protocol: Document 07/01/21 10:35 AB (Rec: 07/01/21 13:03 AB [email or web address]) Medical Review Prior Functional Status Medical History Reviewed Yes Communication able to make needs known Mobility and Gait pt stated that he is independent with all mobilities and ambulation without AD Social History Household Members children,none Living Arrangements House Number of Floors (Floors) One Floor Number of Stairs To Enter/Railing? 1 step to enter Home Environment Standard Height Toilet,Tub/ Shower Home Equipment Front Wheel Walker,Straight Cane,Shower Seat without Backrest,Hand Held Shower,Grab Bars Near Toilet,Grab Bars In Shower Additional Social History Comment pt will have his daughter to assist him at home M2 PT-IP Current Condition Start: 07/01/21 12:54 Freq: NEEDED Status: Active Protocol: Document 07/01/21 10:35 AB (Rec: 07/01/21 13:03 AB [email or web address]) Physical Therapy Current Condition Current Condition Evaluation Date 07/01/21 Treatment Diagnosis s/p R TKA revision; difficulty in walking Onset Date 06/30/21 M3 PT-IP Subjective Start: 07/01/21 12:54 Freq: NEEDED Status: Active Protocol: Document 07/01/21 10:35 AB (Rec: 07/01/21 13:03 AB [email or web address]) Subjective Physical Therapy Visit Type Type Initial Evaluation Visit Start Time 10:35 Visit Stop Time 10:56 Total Visit Minutes 21 Number of LEGAL ADVISOR Visits 0 Physical Therapy Visit Comments Patient Comments agreeable to do PT Therapy Pain Assessment Pain Present Pain Present Denied Pain M4 PT-IP Mobility and Gait Start: 07/01/21 12:54 Freq: NEEDED Status: Active Protocol: Document 07/01/21 10:35 AB (Rec: 07/01/21 13:03 AB [id number]) PT-Bed Mobility Assessment Supine to Sit Supine to Sit Standby Assistance Sit to Supine Sit to Supine Standby Assistance PT-Transfer Assessment Sit to and From Stand Sit to and from Stand Standby Assistance Equipment Transfer Assistive Device Gait Belt,Front Wheeled Walker Orthotic/Prosthetic Devices or Brace: No Transfers Transfer Destination Toilet Transfer Technique ambulated Transfer Ability Level of Assist Standby Assistance,Use of Upper Extremities Comments Mobility Comments completed sit to stand SBA and ambulated to the toilet using fWW SBA. able to complete toileting without assitance SBA for safety. ambulated out of the toilet towards the sink using FWW SBA and maintained standing balance SBA while completing handwashing. pt ambulated to the chair. agreed to do stairs. completed ambulation out to the hallway. completed up/down platform step using FWW SBA x 2 sets completed. ambulated ~ 100 ft using fWW sBA and back to chair. positioned on the chair. call light and table placed within reach. Gait Assessment Gait Gait Assistance Required: Standby Assistance Distance (Feet) 100 Able to Maintain Weight Bearing Status Yes During Gait Assistive Devices Assistive Device Gait Belt Orthotic/Prosthetic Devices or Brace: No Gait Deviations General Gait Pattern Antalgic,Decreased Stride Length,Decreased Feet Clearance Factors Limiting Gait Function Factors Limiting Gait Function Decreased Activity Tolerance, Decreased Strength,Poor Balance,Poor Safety Awareness Stair Climbing Assessment Evaluation Level of Assist On Stairs Standby Assistance Devices Stair Climbing Assistive Devices Front Wheel Walker Technique/Endurance Stair Climbing Direction Ascend and Descend Stair Climbing Technique Step to Step Number of Steps Climbed 1 Query Text: Stair Climbing Set # Repetitions (reps) 2 PT-Balance Assessment Sitting Balance and Reactions Static Sitting Balance Ability Normal Dynamic Sitting Balance Ability Normal Standing Balance and Reactions Static Standing Balance Ability Good Dynamic Standing Balance Ability Fair Device Used FWW M5 PT-IP Objective Assessments Start: 07/01/21 12:54 Freq: NEEDED Status: Active Protocol: Document 07/01/21 10:35 AB (Rec: 07/01/21 13:03 AB [id number]) Orientation Orientation/Cognition Level of Alertness Alert Orientation Name,Age,Birthday,Month,Date, Year,Day of Week,Place, Situation Language Function Ability No Deficits Noted Safety Awareness Understands Safety Issues Memory Description No Deficits Noted Strength Lower Extremity Strength Assessment Within Functional Limits Coordination Assessment Gross Coordination Gross Coordination WNL Sensation Assessment Sensation Gross Sensation WNL Muscle Tone Muscle Tone WNL Yes M6 PT-IP Treatment Start: 07/01/21 12:54 Freq: NEEDED Status: Active Protocol: Document 07/01/21 10:35 AB (Rec: 07/01/21 13:03 AB [email or web address]) Physical Therapy Treatment Education Education Provided Precautions,Weight Bearing Status,Post-Op Packet,Safety M7 PT-IP Assessment and Plan Start: 07/01/21 12:54 Freq: NEEDED Status: Active Protocol: Document 07/01/21 10:35 AB (Rec: 07/01/21 13:03 AB [email or web address]) PT Summary Assessment and Plan Potential Rehabilitation Potential Good Status of Condition at Evaluation Stable Summary Impairments Pain,ROM,Strength,Balance, Coordination,Sensation,Tone, Cognition,Bed Mobility, Transfers,Gait,Activity Tolerance Assessment Summary pt able to ambulate using FWW SBA and will have his daughter to assist him at home. pt has outpt PT scheduled. pt plans to go home today. Goals Bed Mobility Goal Independent Transfer Goal Independent,Front Wheeled Walker Gait Goal Independent,Front Wheel Walker Gait Distance 300 Other Goals up/down 1 step using FWW mod I Days to Meet Goals 3 Frequency of Treatment Frequency Of Treatment Twice a Day Treatment Plan Physical Therapy Treatment Plan Bed Mobility Training,Transfer Training,Gait Training, Therapeutic Exercise,Balance Retraining,Post Op Education, Discharge Planning,Hot or Cold Pack,Neuromuscular Re-ed, Coordination Retraining,Manual Therapy Weight Bearing Status Weight Bearing Status Weight Bear as Tolerated Allowed Weight Bearing Amount (enter % RLE WBAT or #) (%) Recommendations To Nursing Amount of Assist Needed Standby Assistance Discharge Recommendations PT Discharge Recommendations Home with Assistance, Outpatient PT Transportation Needs at Discharge Private Vehicle
--- NOTE | 2021-07-01 11:49 | PC.NURSE ---
Pt is dressed and ready for discharge home with Friend. He has been cleared for discharge by PT. Went over d/c instructions with Pt-discussed d/c meds, time of last dose, reviewed stroke education, s/s of infection, dsg, reminded Pt to not exceed 3000mg of Acetaminophen in 24 hours, reminded Pt to drink plenty of fluids to prevent constipation or dehydration, and discussed follow up. Pt is aware that he cannot drive while taking narcotics. Pt denies further questions and is ready to d/c as soon as his ride gets here. IV has been removed.
--- NOTE | 2021-07-01 13:23 | CM.IDA ---
Addendum entered by SARWAT Recinos 07/01/21 13:26: ADD: Correction- patient is a [place] resident Original Note: Initial DCP Assessment Note Pt is a 61 yo male, resident of [place], now POD#1 from Rt knee surgery by Dr Ventura PCP: Elzbieta Elena Payer: Sen Reviewed chart, pt discussed in multidisciplinary rounds this morning. Therapy has cleared pt for return home w/family to assist and pt has planned for home, DC order from Ortho has already been initiated this morning. No needs expected from DC planning team although will remain available in case this changes today. SARWAT Khan
== END 2021-07-01 12:45 | disposition home or self-care (01) | DRG 468 ==
PROVIDERS: Admitting Provider Orthopaedic Surgery; PCP Family Medicine; Referring Provider Orthopaedic Surgery; Visit Provider Orthopaedic Surgery
PROC: 0SRC069 Replacement of Right Knee Joint with Oxidized Zirconium on Polyethylene Synthetic Substitute, Cemented, Open Approach (ICD-10-PCS; principal; 2021-06-30 13:15)
DX: T84.032A Mechanical loosening of internal right knee prosthetic joint, initial encounter (principal); Z96.651 Presence of right artificial knee joint; E78.5 Hyperlipidemia, unspecified; I10 Essential (primary) hypertension; R10.13 Epigastric pain; N52.9 Male erectile dysfunction, unspecified; Z20.822 Contact with and (suspected) exposure to COVID-19
CPT/HCPCS: 36415; 73560; 85014; 85018; 87635; 94760; 94762; 97161; C1776; C9803; C1713; C9290; J0171; J0690; J1100; J2250; J2270; J2274; J2405; J2704; J3010